=== PATIENT | male | born 1980 | race Caucasian/White ===

== ENCOUNTER 2019-10-22 00:23 | Emergency (ER) | payer BC, SELFPAY ==
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
[2019-10-22 00:25] VITALS: BP 119/65; PULSE 98; RESP 14; TEMP 36.8; O2SAT 98
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
--- NOTE | 2019-10-22 02:53 | PC.NURSE ---
alum finger splint applied as ordered.
[2019-10-22] MEDS: DOXYCYCLINE HYCLATE 100 MG TABLET PO (03:14)
[2019-10-22] MEDS: CLINDAMYCIN HCL 150 MG CAP 300 MG PO (03:15)
[2019-10-22 03:20] VITALS: BP 138/86; PULSE 71; RESP 16; TEMP 36.4; O2SAT 97
== END 2019-10-22 03:21 | disposition home or self-care (01) ==
PROVIDERS: Emergency Provider Emergency Medicine; PCP Internal Medicine Infectious Disease
DX: S61.255A Open bite of left ring finger without damage to nail, initial encounter (principal); Y04.1XXA Assault by human bite, initial encounter
CPT/HCPCS: 73140; 99283; A9270

== ENCOUNTER 2021-03-02 13:23 | Outpatient (CLI) | payer OTHER, SELFPAY ==
[2021-03-02 14:39] LABS: Hematocrit 47.3 % (42.0-52.0); Hemoglobin 15.7 g/dL (14.0-18.0)
[2021-03-02 14:50] LABS: Blood Urea Nitrogen 19 mg/dL (9-20); Estimated Glomerular Filt Rate > 60
[2021-03-02 15:42] LABS: Iron 60 ug/dL (49-181)
[2021-03-02 15:53] LABS: Percent Iron Saturation 17 % (20-50)
--- NOTE | 2021-03-02 16:39 | WPDPFTINT ---
PFT Procedure Performed PFT Procedure Performed Spirometry with Pre/Post Bronchodilator Plethysmography (Lung Vol) Diffusing Cap (DLCO) Flow Vol Loop PFT Interpretation This is a pulmonary function test with pre and post-bronchodilator spirometry, plethysmography and diffusing capacity. The test was performed and results interpreted in accordance with the 2019 and 2005 ATS/ERS Task Force guidelines respectively using the Global Lung Function Initiative-2012 reference equations. Patient demonstrated good effort and cooperation. Reproducibility criteria were met. The quality of the pre bronchodilator spirometry maneuver was Grade B and post bronchodilator spirometry maneuver was Grade C. Findings: Spirometry: There is decreased maximal expiratory airflow at low lung volumes with concave expiratory flow tracing. The pre bronchodilator FVC is 5.92 L, 113% predicted. The pre bronchodilator FEV1 is 4.01 L, 96% predicted. The FEV1: FVC ratio was 68%. The post bronchodilator FVC is 5.21 L, representing a 12% decrease. The post bronchodilator FEV1 is 3.18 L, representing a 21% decrease. The post bronchodilator FEV1: FVC ratio 61%. Plethysmography: The total lung capacity is 11.02, 157% predicted. Functional residual capacity is 7.04, 184% predicted. The residual volume is 4.85 L, 242% predicted. Diffusing capacity: The absolute diffusion capacity is 29.1, 84% predicted. The diffusing capacity corrected for alveolar volume is 4.20, 93% predicted. Impression: There is a mild obstructive abnormality with and normal FEV1 and without significant improvement after inhaling a single dose of albuterol. The increase in residual volume is consistent with air trapping from an obstructive abnormality. Hyperinflation is present is demonstrated by the increase in functional residual capacity and total lung capacity and is consistent with an obstructive abnormality. The diffusing capacity is normal. There are no prior studies for comparison
[2021-03-06 12:53] LABS: Red Blood Cell Folate 470 ng/mL RBC (>280)
== END 2021-03-02 13:24 | disposition home or self-care (01) ==
PROVIDERS: PCP Internal Medicine Infectious Disease; Visit Provider Nurse Practitioner
DX: R06.09 Other forms of dyspnea (principal); R94.2 Abnormal results of pulmonary function studies
CPT/HCPCS: 36415; 82565; 82607; 82728; 82747; 83540; 83550; 83735; 84520; 85014; 85018; 94060; 94726; 94729

== ENCOUNTER 2022-12-17 12:32 | Emergency (ER) | payer OTHER, SELFPAY ==
[2022-12-17 12:45] VITALS: BP 104/70; PULSE 85; RESP 15; TEMP 36.3; O2SAT 99
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
== END 2022-12-17 13:43 | disposition left against medical advice (07) ==
PROVIDERS: PCP Nurse Practitioner Family
DX: Z04.1 Encounter for examination and observation following transport accident (principal)
CPT/HCPCS: 99199

== ENCOUNTER 2024-11-09 00:28 | Inpatient (IN) | payer OTHER, SELFPAY ==
[2024-11-09] VITALS (19 sets, daily range): BP systolic 107–131; BP diastolic 60–70; PULSE 69–87; RESP 16–26; TEMP 36.6–36.9; O2SAT 95–100; BMI 23.0; BMI 22.3
--- NOTE | ~2024-11-09 | CT_ITS ---
EXAMINATION: CTA chest PE protocol DATE: 11/09/2024 18:55 INDICATION: elevated ddimer TECHNIQUE: Computed tomography angiography (CTA) of the chest was performed with 100 mL Omnipaque-350 intravenous contrast timed to evaluate the pulmonary arteries. Coronal maximum intensity projection 3D-reconstructions were created by the technologist. The dose-length product (DLP) was 343.77 mGy-cm. Automated exposure control and iterative reconstruction technique were employed. COMPARISON: None. FINDINGS: Lung parenchyma and airways: 6 mm pulmonary nodule. Additional sub-6 mm pulmonary nodules also noted. Lungs otherwise clear. Patent airways. Pleura: Unremarkable. Thoracic inlet, axillae and chest wall: Unremarkable. Thoracic aorta: No significant dilation. No dissection. Mediastinum: Normal. Heart and pericardium: Cardiomegaly. Dilated left ventricular chamber. Coronary artery calcifications: Absent. Upper abdomen: No significant finding. Bones: No acute osseous finding. Pulmonary arteries: Study quality: Limited by suboptimal contrast bolus and considerable beam hardeni ng artifact. Limited evaluation of the subsegmental pulmonary arteries. No central or segmental pulmo nary emboli detected. IMPRESSION: No CT evidence of acute central or segmental pulmonary embolus. Limited evaluation of the subsegmenta l pulmonary arteries No acute process detected in the chest. Cardiomegaly, with left ventricular chamber enlargement. Multiple pulmonary nodules measuring up to 6 mm in the left lower lobe. Recommend follow-up low-dose noncontrast CT of the chest in 3-6 months. Reviewed, dictated and finalized at [facility]. IMPRESSION: No CT evidence of acute central or segmental pulmonary embolus. Limited evaluat ion of the subsegmental pulmonary arteries No acute process detected in the chest. Cardiomegaly, with left ventricular chamber enlargement. Multiple pulmonary nodules measuring up to 6 mm in the left lower lobe. Recomme nd follow-up low-dose noncontrast CT of the chest in 3-6 months.
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
--- NOTE | ~2024-11-09 | XR_ITS ---
EXAM: XR knee LT min 4V, XR tibia fibula LT 2V, XR ankle LT min 3V DATE: 11/09/2024 15:58 HISTORY: pain . COMPARISON: None available. FINDINGS: Normal mineralization. No fracture or dislocation. No lytic or blastic lesion. 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 Prominent os trigonum. Minimal Achilles and mild plantar enthesopathy S oft tissue anchors in the lateral knee. No erosion or periosteal change. Soft tissues within normal l imits. IMPRESSION: No acute osseous finding the left knee, left tibia/fibula, or left ankle. Reviewed, dictated and finalized at location K. IMPRESSION: No acute osseous finding the left knee, left tibia/fibula, or left ankle. IMPRESSION: No acute osseous finding the left knee, left tibia/fibula, or left ankle.
--- NOTE | ~2024-11-09 | US_ITS ---
EXAMINATION:US venous doppler LE RT INDICATION:Swollen leg. Positive d-dimer. TECHNIQUE: Multiple grayscale, color flow and Doppler images of the right lower extremity deep venous systems were obtained and reviewed. COMPARISON:No prior studies for comparison. FINDINGS: The common femoral, superficial femoral and popliteal veins demonstrate normal respiratory variation, augmentation and compressibility. Color flow is also seen within the posterior tibial, pe roneal, greater saphenous and profunda veins. IMPRESSION: 1: No lower extremity deep venous thrombosis. Reviewed, dictated and finalized at location B.
--- NOTE | ~2024-11-09 | XR_ITS ---
EXAM: XR ankle RT min 3V, XR tibia fibula RT 2V, XR knee RT 3V DATE: 11/10/2024 17:26 HISTORY: ankle pain . COMPARISON: DVT ultrasound and CT right lower extremity 11/09/2024. FINDINGS: Normal mineralization. No fracture or dislocation. No lytic or blastic lesion. Mild degene rative change at the knee.. No erosion or periosteal change. Diffuse soft tissue swelling and subcuta neous edema in the lower leg. IMPRESSION: No acute osseous finding in the right knee, right tibia/fibula, or right ankle. Possible soft tissue defect at the level of the tibial tuberosity. Diffuse leg soft tissue swelling/edema. Reviewed, dictated and finalized at location K. IMPRESSION: No acute osseous finding in the right knee, right tibia/fibula, or right ankle. Possible soft tissue defect at the level of the tibial tuberosity. Diffuse leg soft tissue swelling/edema. IMPRESSION: No acute osseous finding in the right knee, right tibia/fibula, or right ankle. Possible soft tissue defect at the level of the tibial tuberosity. Diffuse leg soft tissue swelling/edema.
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
--- NOTE | ~2024-11-09 | CT_ITS ---
EXAMINATION: CT LE RT w con DATE: 11/09/2024 02:35 INDICATION: Right lower limb edema and erythema TECHNIQUE: High resolution computed tomography (CT) of the right lower limb was performed with 100 mL Omnipaque-350 intravenous contrast. Additional sagittal and coronal reconstructions were performed. Automated exposure control and iterative reconstruction technique were employed. The dose-length prod uct was 2348.52 mGy-cm. COMPARISON: None FINDINGS: Prominent asymmetric soft tissue swelling and subcutaneous edema along the right lower limb ischemia with relatively mild subcutaneous edema at the mid thigh becoming significantly more prominent at the right lower leg extending about the right ankle and over the dorsum of the foot. There is skin thick ening at the anterior aspect of the proximal lower leg just above cellulitis centered around a 6.0 x 3.0 x 0.9 cm fluid collection with peripheral enhancement located anterior to the anterior cerebral t uberosity which could represent a post traumatic hematoma/seroma or abscess. Although contrast opacif ication is relatively poor there is no evident thrombosis in either of the deep veins of the bilatera l lower limbs or the greater or lesser saphenous veins. Bone alignment is normal. No acute fracture. Plate and screw fixation along with a couple screw fragments versus suture anchors at the left latera l femoral condyle. Correlate with surgical history. Mild polyarticular osteoarthritis throughout the bilateral lower limbs most prominent at the bilateral hips and several joints in the feet. IMPRESSION: 1. Extensive subcutaneous edema throughout the right mid to lower leg with multifocal cellulitis ante rior to the proximal lower leg surrounding a 6.0 x 3.0 x 0.9 cm pretibial subcutaneous hematoma/serom a versus abscess which overlies anterior tibial tubercle. Reviewed, dictated and finalized at location A. IMPRESSION: 1. Extensive subcutaneous edema throughout the right mid to lower leg with mult ifocal cellulitis anterior to the proximal lower leg surrounding a 6.0 x 3.0 x 0.9 cm pretibial subcutaneous hematoma/seroma versus abscess which overlies ant erior tibial tubercle.
--- OUTSIDE RECORDS SUMMARY | 2024-11-09 00:30 | XMS_ITS | Continuity of Care Document ---
Author Organization [facility] Address [address] [place] [address] Phone Care Team Providers Care Medical Secretary Receptionist Name Role Phone Vitaly DE JESUS MD, Dwayne Unavailable Unavailable Allergies, Adverse Reactions, Alerts Substance Reaction Status Criticality No Known Allergies Active No Inform ation Procedures Procedure Date Office/outpatient visit,est, mod 2019 Supplemental Report Office/outpatient visit,est, mod 2019 Supplemental Report Office/outpatient visit,est, mod 2018 Supplemental Report MRI Lower extrm non joint w/o contrast D X-ray exam knee, 4+ views Office consultation, moderate-high Advance Directives Directive Yes / No Effective Date File Name No Information Encounters Encounter Description Practice Location Reason(s) For Visit Diagnoses Date Provider Providers Copied on Encounter Office/outpat ient visit,est, [facility], [address] [place] [id number], tel:[phone] [facility] r knee (chief complaint) Pain in right knee Vitaly Rice. [address] [place] [address], [place], [place], [id number], [place]. tel:[phone] Office/outpat ient visit,est, [facility], [address] [place] [address], [id number], [place] tel:[phone] [facility] r knee (chief complaint) Pain in right thighPain in right knee Vitaly Rice. [address], [address], [place], [place], [id number], [place]. tel:[phone] Office/outpat ient visit,est, [facility], [address], [place], [place], [id number], [place] tel:[phone] [facility] r leg (chief complaint) Pain in right thigh Vitaly Rice. [address], [address], [place], [place], [id number], [place]. tel:[phone] [facility], [address], [place], [place], [id number], [place] tel:[phone] [facility] Pain in right thigh [facility]. [address], [address], [place], [place], [id number], [place]. tel:[phone] Referring Provider: Po Mcgee MD P, [address], [place], [address] . tel:[phone] Office consultation, moderate-high [facility], [address], [place], [place], [id number], [place] tel:[phone] [facility] Rightknee And Thigh (chief complaint) Pain in right kneePain in right thigh Vitaly Rice. [address], [address], [place], [place], [id number], [place]. tel:[phone] Family History Family Member Type Diagnosis Age At Onset No Information Payers Payer name Insurance type Covered alliance party ID Giovanni trujillo(lenore Santamaria [facility] [id number] Social History Type Description Quantity Date Captured Comments Alcohol Use Details Unknown Caffeine Use Details Unknown Tobacco Use Status Ex-cigarette smoker 020 Smoking Status Former smoker Sex Male Chief Complaint And Reason For Visit From encounter dated '06/08/2019 13:10'. r knee (chief complaint). Description: patient presents to the office today for follow up right knee Reason For Referral Reason For Referral No Information Plan Of Treatment Date Type Action Status Referral Ordered: MRI Lower extrm non joint w/o contrast RT leg Appointment date/timeframe: 03/31/2019 ordered Referral Ordered: X-ray exam knee, 4+ views RT knee ordered History Of Present Illness Encounter Date Complaint History Of Prese nt Illness r knee patient presents to the office today for follow up right knee r knee patient presents to the office today for follow up right knee pain r leg patient presents to the office today for follow up mri results. Rightknee And Thigh patient pres ents to the office today for evaluation of right knee pain Functional Status Date Functional Assessmen t No Information Instructions Date Instruction Additional Infor mation No Information Assessments Type Assessment Date assessment Pain in right knee Patient Care Teams Name Effective Dates (start - stop) Status Members No Information
--- OUTSIDE RECORDS SUMMARY | 2024-11-09 00:30 | XMS_ITS | Data Portability ---
Author Organization [facility] Toño PUGA Address [address] [place] [address] Care Team Providers Care Kitchen Supervisor Name Role Phone NEY MONCADA Primary Care Provider [facility] Seasoner Hand [phone] Assessment No assessment recorded. Plan of Treatment Reminders Order Date Submit Date Provider Last Modified By Organization Details Last Modified Time Details Appointments None recorded. Lab CBC w/ auto diff 2019 020 [place] [facility], [address] [place] [address], [facility] [address], [place], [address], 0 09:12:59 urinalysis , complete 2019 020 [place] [facility], [address] [place] [address], [address], [place], [address], 0 09:13:00 CMP, serum or plasma 2019 020 [place] [facility], [address] [place] [address], [address], [place], [address], 0 09:12:59 lipid panel, serum 2019 020 [place] [facility], [address] [place] [address], [address], [place], [address], 0 09:13:01 HIV 1+2 AB + HIV 1 p24 Ag, qualitativ e immunoassa y, serum 2019 020 [facility], [address], [address], [place], [address], 0 10:52:00 HIV 1+2 AB + HIV 1 p24 Ag, qualitativ e immunoassa y, serum 2019 020 [facility], [address] [facility] [address], [place], [address], 0 09:13:01 HIV 1+2 AB + HIV 1 p24 Ag, qualitativ e immunoassa y, serum 2019 020 [facility], [address] [facility] [address], [address], [place], [address], 0 03:06:31 HIV 1+2 AB + HIV 1 p24 Ag, qualitativ e immunoassa y, serum 2018 019 [facility], [address] [facility] [address], [address], [place], [address], 0 06:23:48 HIV 1+2 AB + HIV 1 p24 Ag, qualitativ e immunoassa y, serum 2019 020 [facility], [address] [facility] [address], [address], [place], [address], 0 07:15:23 HIV 1+2 AB + HIV 1 p24 Ag, qualitativ e immunoassa y, serum 2019 020 [facility], [address] [facility], [address], [place], [address], 0 10:34:05 CBC w/ auto diff 2018 019 [facility], [address] [facility] [address], [address], [place], [address], 9 06:09:49 CMP, serum or plasma 2018 019 [facility], [address], [address], [place], [address], 9 06:09:50 urinalysis , complete 2018 019 [facility], [address] [facility] [address], [address], [place], [address], 9 16:36:35 lipid panel, serum 2018 019 [facility], [address] [facility] [address], [address], [place], [address], 9 03:13:14 CT + NG RNA, PCR, unspecifie d specimen 2018 019 [facility], [address] [facility] [address], [address], [place], [address], 9 06:09:50 RPR (rapid plasma reagin), serum 2018 019 [facility], [address] [place], [place] [address], [address], [place], [address], 9 06:09:51 urinalysis , dipstick, reflex micro 2018 019 [facility], [address] [facility] [address], [address], [place], [address], 9 06:09:49 HIV 1+2 AB + HIV 1 p24 Ag, qualitativ e immunoassa y, serum 2018 019 [facility], [address] [place], [place] [address], [address], [place], [address], 9 06:09:51 amylase + lipase, serum 2017 018 [facility], [address], [address], [place], [address], 8 17:10:40 CBC 2017 018 [facility], [address], [address], [place], [address], 8 17:10:37 urinalysis , complete 2017 018 [facility], [address], [address], [place], [address], 8 17:10:38 lipid panel, serum 2017 018 [facility], [address], [address], [place], [address], 8 17:10:39 CMP, serum or plasma 2017 018 [facility], [address], [address], [place], [address], 8 17:10:38 HIV 1+2 AB + HIV 1 p24 Ag, qualitativ e immunoassa y, serum 2017 018 [facility], [address], [address], [place], [address], 8 17:10:41 HIV 1+2 AB + HIV 1 p24 Ag, qualitativ e immunoassa y, serum 2017 018 [facility], [address], [address], [place], [address], 8 03:19:03 MMR immunity, serum 2017 018 [place] [facility], [address] [facility], [address], [place], [address], 8 17:10:39 Referral urologist referral - Pt desires a vasectomy/ Please call patient to schedule appt. Thank you 2019 020 jose c Sethi, [address] [facility], [address], [place], [address], 0 11:45:47 dermatolog ist referral - Cystic lesion right upper thigh. Skin survey/ Please call patient to schedule appt. Thank you 2018 019 jose c Rodriguez MD, [address] [place], [address], 0 09:38:26 sleep medicine referral - Please call patient to schedule appt. Thank you 2018 019 [facility], [address] [facility], [facility] [address], [place], [address], 9 10:08:53 gastroente rologist referral - Abdominal pain, bilary dilatation on CT scan/Pleas e call patient to schedule appt. Thank you 2017 018 [place] Not available 8 14:21:07 Procedures None recorded. Surgeries None recorded. Imaging XR, lumbosacra l spine - L sided lower back 2019 020 [facility] (Radiology), [address] [place], [address], 0 12:21:43 Medication Orders ketoconazo le 2 % shampoo 2019 020 [facility] #94296, [address], [place], [place], [id number], 0 10:55:13 fluconazol e 150 mg tablet 2019 020 [facility] #58690, [address], [place], [place], [id number], 0 10:49:23 acyclovir 800 mg tablet 2019 020 [facility] #[id number], [address], [place], [place], [id number], 0 16:16:11 acyclovir 800 mg tablet 2018 019 [facility] #05465, [address], [place], [place], [id number], 9 16:35:27 Factive 320 mg tablet 2018 019 [facility] #[id number], [address], [place], [place], [id number], 9 16:23:04 azithromyc in 500 mg tablet 2018 019 [facility] #85247, [address], [place], [place], [id number], 9 16:22:58 ketoconazo le 2 % shampoo 2018 019 o[facility] #67106, [address], [place], [place], [id number], 0 16:10:16 fluconazol e 150 mg tablet 2018 019 [facility] #77009, [address], [id number], 9 16:22:53 valacyclov ir 1 gram tablet 2017 018 [facility], [address], [place], [place], [id number], 9 16:39:27 Truvada 200 mg-300 mg tablet 2017 018 [facility] #28810, [address], [place], [place], [id number], 9 16:39:32 Patient TargetsNo targets recorded. Patient Instructions Encounter Date Encounter Id Patient Instructions Last Modified By Organization Details Last Modified Time 05/02/2017 [id number] genital herpes: care instructions oajao Not available 05/02/2017 19:25:03 abdominal pain: care instructions oajao Not available 05/02/2017 16:48:08 A healthy lifestyle: care instructions oajao Not available 05/02/2017 16:48:08 Quitting Tobacco : Care Instructions oajao Not available 05/02/2017 16:48:08 HIV testing: car e instructions oajao Not available 05/02/2017 16:48:08 Labs GI Serial HIV tests Restart Truvada and take Valtrex to prevent recurrence and this should further decrease his chances of open lesions and judy HIV. Follow up in 3 months and PRN Copy of the CT scan from [facility]. oajao Not available 05/02/2017 19:31:53 Negative HIV lay t results were discussed. Addendum Measles and serial HIV testing was added on. oajao Not available 05/02/2017 19:40:25 12/31/2018 [id number] tinea versicolor : care instructions oajao Not available 12/31/2018 16:50:15 HIV testing: car e instructions oajao Not available 12/31/2018 16:35:51 Factive/Azithrom y fly Ketoconazole/Fluc onazole Labs Follow up in 6 weeks oajao Not available 12/31/2018 18:36:14 Detailed discussion about the side effects oajao Not available 12/31/2018 18:36:31 02/11/2019 [id number] When You Want to Lose Weight: Care Instructions oajao Not available 02/11/2019 16:31:32 learning about healthy weight oajao Not available 02/11/2019 16:31:32 skin lesions: care instructions oajao Not available 02/11/2019 16:38:58 HIV testing: car e instructions oajao Not available 02/11/2019 16:36:48 Acyclovir [facility] Dermatology Follow up in 6 months oajao Not available 02/11/2019 17:58:23 06/24/2019 [id number] sleep apnea: car e instructions oajao Not available 06/24/2019 16:12:[address] Karo Wynn Follow up 6 months and PRN oajao Not available 06/24/2019 16:34:55 Lab results were discussed oajao Not available 06/24/2019 16:35:08 01/05/2020 [id number] back care and preventing injuries: care instructions oajao Not available 01/05/2020 10:49:15 Labs U=U pt information Xray Ketoconazole/Fluc onazole Follow up in 6 months oajao Not available 01/05/2020 11:16:58 Reason for Referral Abdominal pain, bilary dilat ation on CT scan/Please call patient to schedule appt. Thank you Referring Physician: Jaziel Osullivan Internal Medicine, Encounter Date: 05/02/2017 Sleep Medicine Referral for Apnea Please call patient to schedule appt. Thank you Referring Physician: Jaziel Osullivan Internal Medicine, Encounter Date: 12/31/2018 Stile Ripsaw Operator Referral for S kin lesion Cystic lesion right upper thigh. Skin survey Cystic lesion right upper thigh. Skin survey/ Please call patient to schedule appt. Thank you Referring Physician: Jaziel Osullivan Internal Medicine, Encounter Date: 02/11/2019 Urologist Referral for Vasec reji requested Pt desires a vasectomy Pt desires a vasectomy/ Please call patient to schedule appt. Thank you Referring Physician: Jaziel Osullivan Internal Medicine, Encounter Date: 01/05/2020 Results Created Date Observation Date Name Description Value Unit Range Abnormal Flag Note LastModifiedBy Organization Detail LastModifiedTime 04/02/20 18 07/15/2017 CBC WBC 4.1 x10e3 /uL 3.4-10 .8 Not Available [facility] ([facility]) [address] [place] [place], [address], 07/15/2017 17:10:37 07/15/19 18 07/15/2017 CBC RBC 5.00 x10e6 /uL 4.14-5 .80 Not Available [facility] ([facility]) [address] [place], [address], 07/15/2017 17:10:37 07/15/19 18 07/15/2017 CBC hemoglobin 15.3 g/dL 13.0-1 7.7 Not Available [facility] ([facility]) [address] [place] [place], [address], 07/15/2017 17:10:37 07/15/19 18 07/15/2017 CBC hematocrit 44.8 % 37.5-5 1.0 Not Available [facility] ([facility]) [address] [place] [place], [address], 07/15/2017 17:10:37 07/15/19 18 07/15/2017 CBC MCV 90 fL 79-97 Not Available [facility] ([facility]) [address] [facility], [place], [address], 07/15/2017 17:10:37 07/15/19 18 07/15/2017 CBC MCH 30.6 pg 26.6-3 3.0 Not Available [facility] ([facility]) [address] [place] [place], [address], 07/15/2017 17:10:37 07/15/19 18 07/15/2017 CBC MCHC 34.2 g/dL 31.5-3 5.7 Not Available [facility] ([facility]) [address] [place] [place], [address], 07/15/2017 17:10:37 07/15/19 18 07/15/2017 CBC RDW 14.0 % 12.3-1 5.4 Not Available [facility] ([facility]) [address] [facility], [place], [address], 07/15/2017 17:10:37 07/15/19 18 07/15/2017 CBC platelets 222 x10e3 /uL 150-37 9 Not Available [facility] ([facility]) [address] [facility], [place], [address], 07/15/2017 17:10:37 07/15/19 18 07/15/2017 CBC neutrophils 53 % not estab. Not Available [facility] ([facility]) [address] [place] [place], [address], 07/15/2017 17:10:37 07/15/19 18 07/15/2017 CBC lymphs 34 % not estab. Not Available [facility] ([facility]) [address] [place] [place], [address], 07/15/2017 17:10:37 07/15/19 18 07/15/2017 CBC monocytes 9 % not estab. Not Available [facility] ([facility]) [address] [place] [place], [address], 07/15/2017 17:10:37 07/15/19 18 07/15/2017 CBC eos 3 % not estab. Not Available [facility] ([facility]) [address] [facility], [place], [address], 07/15/2017 17:10:37 07/15/19 18 07/15/2017 CBC basos 1 % not estab. Not Available [facility] ([facility]) [address] [place], [address], 07/15/2017 17:10:37 07/15/19 18 07/15/2017 CBC immature cells TRAVEL ACCOMMODATION INSPECTOR Not Available [facility] ([facility]) [address] [facility], [place], [address], 07/15/2017 17:10:37 07/15/19 18 07/15/2017 CBC neutrophils (absolute) 2.1 x10e3 /uL 1.4-7. 0 Not Available [facility] ([facility]) [address] [facility], [place], [address], 07/15/2017 17:10:37 07/15/19 18 07/15/2017 CBC lymphs (absolute) 1.4 x10e3 /uL 0.7-3. 1 Not Available [facility] ([facility]) [address] [facility], [place], [address], 07/15/2017 17:10:37 07/15/19 18 07/15/2017 CBC monocytes(ab solute) 0.4 x10e3 /uL 0.1-0. 9 Not Available [facility] ([facility]) [address] [facility], [place], [address], 07/15/2017 17:10:37 07/15/19 18 07/15/2017 CBC eos (absolute) 0.1 x10e3 /uL 0.0-0. 4 Not Available [facility] ([facility]) [address] [facility], [place], [address], 07/15/2017 17:10:37 07/15/19 18 07/15/2017 CBC baso (absolute) 0.1 x10e3 /uL 0.0-0. 2 Not Available [facility] ([facility]) [address] [facility], [place], [address], 07/15/2017 17:10:37 07/15/19 18 07/15/2017 CBC immature granulocytes 0 % not estab. Not Available [facility] ([facility]) [address] [facility], [place], [address], 07/15/2017 17:10:37 07/15/19 18 07/15/2017 CBC immature grans (abs) 0.0 x10e3 /uL 0.0-0. 1 Not Available [facility] ([facility]) [address] [place], [address], 07/15/2017 17:10:37 07/15/19 18 07/15/2017 CBC NRBC TRAVEL ACCOMMODATION INSPECTOR Not Available [facility] ([facility]) [address] [place], [address], 07/15/2017 17:10:37 07/15/19 18 07/15/2017 CBC hematology comments: TRAVEL ACCOMMODATION INSPECTOR Not Available [facility] ([facility]) [address] [place], [address], 07/15/2017 17:10:37 07/15/19 18 07/15/2017 CMP, serum or plasm a glucose 90 mg/dL 65-99 Not Available [facility] ([facility]) [address] [place], [address], 07/15/2017 17:10:38 07/15/19 18 07/15/2017 CMP, serum or plasm a BUN 13 mg/dL 6-20 Not Available [facility] ([facility]) [address] [place], [address], 07/15/2017 17:10:38 07/15/19 18 07/15/2017 CMP, serum or plasm a creatinine 1.12 mg/dL 0.76-1 .27 Not Available [facility] ([facility]) [address] [place], [address], 07/15/2017 17:10:38 07/15/19 18 07/15/2017 CMP, serum or plasm a eGFR if nonafricn AM 83 mL/mi n/1.7 3 >59 Not Available [facility] ([facility]) [address] [place], [address], 07/15/2017 17:10:38 07/15/19 18 07/15/2017 CMP, serum or plasm a eGFR if africn AM 96 mL/mi n/1.7 3 >59 Not Available [facility] ([facility]) [address] [place], [address], 07/15/2017 17:10:38 07/15/19 18 07/15/2017 CMP, serum or plasm a BUN/creatini ne ratio 12 9-20 Not Available [facility] ([facility]) [address] [place], [address], 07/15/2017 17:10:38 07/15/19 18 07/15/2017 CMP, serum or plasm a sodium 144 mmol/ L 134-14 4 Not Available [facility] ([facility]) [address] [place], [address], 07/15/2017 17:10:38 07/15/19 18 07/15/2017 CMP, serum or plasm a potassium 4.8 mmol/ L 3.5-5. 2 Not Available [facility] ([facility]) [address] [place], [address], 07/15/2017 17:10:38 07/15/19 18 07/15/2017 CMP, serum or plasm a chloride 106 mmol/ L 96-106 Not Available [facility] ([facility]) [address] [place], [address], 07/15/2017 17:10:38 07/15/19 18 07/15/2017 CMP, serum or plasm a carbon dioxide, total 24 mmol/ L 18-29 Not Available [facility] ([facility]) [address] [place], [address], 07/15/2017 17:10:38 07/15/19 18 07/15/2017 CMP, serum or plasm a calcium 9.5 mg/dL 8.7-10 .2 Not Available [facility] ([facility]) [address] [place], [address], 07/15/2017 17:10:38 07/15/19 18 07/15/2017 CMP, serum or plasm a protein, total 6.9 g/dL 6.0-8. 5 Not Available [facility] ([facility]) [address] [place], [address], 07/15/2017 17:10:38 07/15/19 18 07/15/2017 CMP, serum or plasm a albumin 4.8 g/dL 3.5-5. 5 Not Available [facility] ([facility]) [address] [place], [address], 07/15/2017 17:10:38 07/15/19 18 07/15/2017 CMP, serum or plasm a globulin, total 2.1 g/dL 1.5-4. 5 Not Available [facility] ([facility]) [address] [place], [address], 07/15/2017 17:10:38 07/15/19 18 07/15/2017 CMP, serum or plasm a A/G ratio 2.3 1.2-2. 2 above high normal Not Available [facility] ([facility]) [address] [place], [address], 07/15/2017 17:10:38 07/15/19 18 07/15/2017 CMP, serum or plasm a bilirubin, total 0.7 mg/dL 0.0-1. 2 Not Available [facility] ([facility]) [address] [place], [address], 07/15/2017 17:10:38 07/15/19 18 07/15/2017 CMP, serum or plasm a alkaline phosphatase 73 IU/L 39-117 Not Available [facility] [address] [place], [address], 07/15/2017 17:10:38 07/15/19 18 07/15/2017 CMP, serum or plasm a AST (SGOT) 12 IU/L 0-40 Not Available [facility] ([facility]) [address] [place], [address], 07/15/2017 17:10:38 07/15/19 18 07/15/2017 CMP, serum or plasm a ALT (SGPT) 12 IU/L 0-44 Not Available [facility] ([facility]) [address] [place], [address], 07/15/2017 17:10:38 07/15/19 18 07/15/2017 urina lysis , compl ete specific gravity 1.019 1.005- 1.030 Not Available [facility] ([facility]) [address] [facility], [place], [address], 07/15/2017 17:10:38 07/15/19 18 07/15/2017 urina lysis , compl ete pH 5.5 5.0-7. 5 Not Available [facility] ([facility]) [address] [facility], [place], [address], 07/15/2017 17:10:38 07/15/19 18 07/15/2017 urina lysis , compl ete urine-color Yellow yellow Not Available [facility] ([facility]) [address] [facility], [place], [address], 07/15/2017 17:10:38 07/15/19 18 07/15/2017 urina lysis , compl ete appearance Clear clear Not Available [facility] ([facility]) [address] [facility], [place], [address], 07/15/2017 17:10:38 07/15/19 18 07/15/2017 urina lysis , compl ete WBC esterase Negati ve negati ve Not Available [facility] ([facility]) [address] [place], [address], 07/15/2017 17:10:38 07/15/19 18 07/15/2017 urina lysis , compl ete protein Negati ve negati ve/tra ce Not Available [facility] ([facility]) [address] [place], [address], 07/15/2017 17:10:38 07/15/19 18 07/15/2017 urina lysis , compl ete glucose Negati ve negati ve Not Available [facility] ([facility]) [address] [place], [address], 07/15/2017 17:10:38 07/15/19 18 07/15/2017 urina lysis , compl ete ketones Negati ve negati ve Not Available [facility] ([facility]) [address] [place], [address], 07/15/2017 17:10:38 07/15/19 18 07/15/2017 urina lysis , compl ete occult blood Negati ve negati ve Not Available [facility] ([facility]) [address] [place], [address], 07/15/2017 17:10:38 07/15/19 18 07/15/2017 urina lysis , compl ete bilirubin Negati ve negati ve Not Available [facility] ([facility]) [address] [place], [address], 07/15/2017 17:10:38 07/15/19 18 07/15/2017 urina lysis , compl ete urobilinogen ,semi-qn 0.2 mg/dL 0.2-1. 0 Not Available [facility] ([facility]) [address] [place], [address], 07/15/2017 17:10:38 07/15/19 18 07/15/2017 urina lysis , compl ete nitrite, urine Negati ve negati ve Not Available [facility] ([facility]) [address] [place], [address], 07/15/2017 17:10:38 07/15/19 18 07/15/2017 urina lysis , compl ete microscopic examination Commen t Micro scopi c not indic ated and not perfo rmed. Not Available [facility] ([facility]) [address] [place], [address], 07/15/2017 17:10:38 07/15/19 18 07/15/2017 lipid panel , serum cholesterol, total 178 mg/dL 100-19 9 Not Available [facility] ([facility]) [address] [place], [address], 07/15/2017 17:10:39 07/15/19 18 07/15/2017 lipid panel , serum triglyceride s 102 mg/dL 0-149 Not Available [facility] ([facility]) [address] [place], [address], 07/15/2017 17:10:39 07/15/19 18 07/15/2017 lipid panel , serum HDL cholesterol 45 mg/dL >39 Not Available [facility] ([facility]) [address] [place] [place], [address], 07/15/2017 17:10:39 07/15/19 18 07/15/2017 lipid panel , serum VLDL cholesterol boni 20 mg/dL 5-40 Not Available [facility] ([facility]) [address] [place], [address], 07/15/2017 17:10:39 07/15/19 18 07/15/2017 lipid panel , serum LDL cholesterol calc 113 mg/dL 0-99 above high normal Not Available [facility] ([facility]) [address] [place], [address], 07/15/2017 17:10:39 07/15/19 18 07/15/2017 lipid panel , serum comment: TRAVEL ACCOMMODATION INSPECTOR Not Available [facility] ([facility]) [address] [place], [address], 07/15/2017 17:10:39 07/15/19 18 07/15/2017 MMR immun ity, serum rubella antibodies, IgG 5.50 index immune >0.99 Non-i mmune <0.90 Equiv ocal 0.90 - 0.99 Immun e >0.99 Not Available [facility] ([facility]) [address] [place], [address], 07/15/2017 17:10:39 07/15/19 18 07/15/2017 MMR immun ity, serum rubeola Ab, IgG 90.7 AU/mL immune >29.9 Negat yang <25.0 Equiv ocal 25.0 - 29.9 Posit yang >29.9 Prese nce of antib odies to Rubeo la is presu mptiv e evide nce of immun ity excep t when acute infec tion is suspe cted. Not Available [facility] ([facility]) [address] [facility], [place], [address], 07/15/2017 17:10:39 07/15/19 18 07/15/2017 MMR immun ity, serum mumps abs, IgG 103.0 AU/mL immune >10.9 Negat yang <9.0 Equiv ocal 9.0 - 10.9 Posit yang >10.9 A posit yang resul t gener ally indic ates past expos ure to Mumps virus or previ ous vacci natio n. Not Available [facility] ([facility]) [address] [facility], [place], [address], 07/15/2017 17:10:39 07/15/19 18 07/15/2017 amyla se + lipas e, serum amylase 105 U/L 31-124 Not Available [facility] ([facility]) [address] [place], [address], 07/15/2017 17:10:40 07/15/19 18 07/15/2017 amyla se + lipas e, serum lipase 37 U/L 13-78 Not Available [facility] ([facility]) [address] [place], [address], 07/15/2017 17:10:40 07/15/19 18 07/15/2017 HIV 1+2 AB + HIV 1 p24 Ag, quali tativ e immun oassa y, serum HIV screen 4TH generation wrfx Non Reacti ve non reacti ve Not Available [facility] ([facility]) [address] [place] [address], [address], 07/15/2017 17:10:40 01/01/20 19 01/01/2019 urina lysis , dipst ick, refle x micro specific gravity >=1.03 0 1.005- 1.030 abnormal Not Available [facility] ([facility]) [address] [place], [address], 01/04/2019 06:09:48 01/01/2001/01/2019 urina lysis , dipst ick, refle x micro pH 5.5 5.0-7. 5 Not Available [facility] ([facility]) [address] [place], [address], 01/04/2019 06:09:48 01/01/20 19 01/01/2019 urina lysis , dipst ick, refle x micro urine-color YELLOW yellow Not Available [facility] ([facility]) [address] [facility], [place], [address], 01/04/2019 06:09:48 01/01/2001/01/2019 urina lysis , dipst ick, refle x micro appearance CLEAR clear Not Available [facility] ([facility]) [address] [place], [address], 01/04/2019 06:09:48 01/01/2001/01/2019 urina lysis , dipst ick, refle x micro WBC esterase NEGATI VE negati ve Not Available [facility] ([facility]) [address] [place] [address], [address], 01/04/2019 06:09:48 01/01/20 19 01/01/2019 urina lysis , dipst ick, refle x micro protein NEGATI VE negati ve/tra ce Not Available [facility] ([facility]) [address] [place], [address], 01/04/2019 06:09:48 01/01/2001/01/2019 urina lysis , dipst ick, refle x micro glucose NEGATI VE negati ve Not Available [facility] ([facility]) [address] [place], [address], 01/04/2019 06:09:48 01/01/20 19 01/01/2019 urina lysis , dipst ick, refle x micro ketones NEGATI VE negati ve Not Available [facility] ([facility]) [address] [place], [address], 01/04/2019 06:09:48 01/01/20 19 01/01/2019 urina lysis , dipst ick, refle x micro occult blood NEGATI VE negati ve Not Available [facility] ([facility]) [address] [place], [address], 01/04/2019 06:09:48 01/01/2001/01/2019 urina lysis , dipst ick, refle x micro bilirubin NEGATI VE negati ve Not Available [facility] ([facility]) [address] [place], [address], 01/04/2019 06:09:48 01/01/2001/01/2019 urina lysis , dipst ick, refle x micro urobilinogen ,semi-qn 0.2 mg/dL 0.2-1. 0 Not Available [facility] ([facility]) [address] [place], [address], 01/04/2019 06:09:48 01/01/2001/01/2019 urina lysis , dipst ick, refle x micro nitrite, urine NEGATI VE negati ve Not Available [facility] ([facility]) [address] [place], [address], 01/04/2019 06:09:48 01/01/20 19 01/01/2019 urina lysis , dipst ick, refle x micro microscopic examination COMMEN T Micro scopi c not indic ated and not perfo rmed. Not Available [facility] ([facility]) [address] [facility], [place], [address], 01/04/2019 06:09:48 01/01/2001/01/2019 CBC w/ auto diff WBC 4.9 x10e3 /uL 3.4-10 .8 Not Available [facility] ([facility]) [address] [place], [address], 01/04/2019 06:09:49 01/01/2001/01/2019 CBC w/ auto diff RBC 4.82 x10e6 /uL 4.14-5 .80 Not Available [facility] ([facility]) [address] [place], [address], 01/04/2019 06:09:49 01/01/20 19 01/01/2019 CBC w/ auto diff hemoglobin 14.8 g/dL 13.0-1 7.7 Not Available [facility] ([facility]) [address] [place], [address], 01/04/2019 06:09:49 01/01/2001/01/2019 CBC w/ auto diff hematocrit 42.7 % 37.5-5 1.0 Not Available [facility] ([facility]) [address] [place], [address], 01/04/2019 06:09:49 01/01/20 19 01/01/2019 CBC w/ auto diff MCV 89 fL 79-97 Not Available [facility] ([facility]) [address] [place], [address], 01/04/2019 06:09:49 01/01/20 19 01/01/2019 CBC w/ auto diff MCH 30.7 pg 26.6-3 3.0 Not Available [facility] ([facility]) [address] [facility], [place], [address], 01/04/2019 06:09:49 01/01/20 19 01/01/2019 CBC w/ auto diff MCHC 34.7 g/dL 31.5-3 5.7 Not Available [facility] ([facility]) [address] [facility], [place], [address], 01/04/2019 06:09:49 01/01/20 19 01/01/2019 CBC w/ auto diff RDW 13.9 % 12.3-1 5.4 Not Available [facility] ([facility]) [address] [facility], [place], [address], 01/04/2019 06:09:49 01/01/20 19 01/01/2019 CBC w/ auto diff platelets 208 x10e3 /uL 150-45 0 Not Available [facility] ([facility]) [address] [facility], [place], [address], 01/04/2019 06:09:49 01/01/20 19 01/01/2019 CBC w/ auto diff neutrophils 59 % not estab. Not Available [facility] ([facility]) [address] [facility], [place], [address], 01/04/2019 06:09:49 01/01/20 19 01/01/2019 CBC w/ auto diff lymphs 28 % not estab. Not Available [facility] ([facility]) [address] [facility], [place], [address], 01/04/2019 06:09:49 01/01/20 19 01/01/2019 CBC w/ auto diff monocytes 11 % not estab. Not Available [facility] ([facility]) [address] [facility], [place], [address], 01/04/2019 06:09:49 01/01/20 19 01/01/2019 CBC w/ auto diff eos 2 % not estab. Not Available [facility] ([facility]) [address] [facility], [place], [address], 01/04/2019 06:09:49 01/01/2001/01/2019 CBC w/ auto diff basos 0 % not estab. Not Available [facility] ([facility]) [address] [facility], [place], [address], 01/04/2019 06:09:49 01/01/2001/01/2019 CBC w/ auto diff immature cells TRAVEL ACCOMMODATION INSPECTOR Not Available [facility] ([facility]) [address] [place], [address], 01/04/2019 06:09:49 01/01/2001/01/2019 CBC w/ auto diff neutrophils (absolute) 2.9 x10e3 /uL 1.4-7. 0 Not Available [facility] ([facility]) [address] [place], [address], 01/04/2019 06:09:49 01/01/2001/01/2019 CBC w/ auto diff lymphs (absolute) 1.4 x10e3 /uL 0.7-3. 1 Not Available [facility] ([facility]) [address] [place], [address], 01/04/2019 06:09:49 01/01/2001/01/2019 CBC w/ auto diff monocytes(ab solute) 0.5 x10e3 /uL 0.1-0. 9 Not Available [facility] ([facility]) [address] [place], [address], 01/04/2019 06:09:49 01/01/2001/01/2019 CBC w/ auto diff eos (absolute) 0.1 x10e3 /uL 0.0-0. 4 Not Available [facility] ([facility]) [address] [place], [address], 01/04/2019 06:09:49 01/01/2001/01/2019 CBC w/ auto diff baso (absolute) 0.0 x10e3 /uL 0.0-0. 2 Not Available [facility] ([facility]) [address] [place], [address], 01/04/2019 06:09:49 01/01/20 19 01/01/2019 CBC w/ auto diff immature granulocytes 0 % not estab. Not Available [facility] ([facility]) [address] [facility], [place], [address], 01/04/2019 06:09:49 01/01/20 19 01/01/2019 CBC w/ auto diff immature grans (abs) 0.0 x10e3 /uL 0.0-0. 1 Not Available [facility] ([facility]) [address] [facility], [place], [address], 01/04/2019 06:09:49 01/01/20 19 01/01/2019 CBC w/ auto diff NRBC TRAVEL ACCOMMODATION INSPECTOR Not Available [facility] ([facility]) [address] [facility], [place], [address], 01/04/2019 06:09:49 01/01/2001/01/2019 CBC w/ auto diff hematology comments: TRAVEL ACCOMMODATION INSPECTOR Not Available [facility] ([facility]) [address] [facility], [place], [address], 01/04/2019 06:09:49 01/01/20 19 01/01/2019 CMP, serum or plasm a glucose 89 mg/dL 65-99 Not Available [facility] ([facility]) [address] [place], [address], 01/04/2019 06:09:50 01/01/20 19 01/01/2019 CMP, serum or plasm a BUN 19 mg/dL 6-24 Not Available [facility] ([facility]) [address] [place], [address], 01/04/2019 06:09:50 01/01/20 19 01/01/2019 CMP, serum or plasm a creatinine 1.22 mg/dL 0.76-1 .27 Not Available [facility] ([facility]) [address] [place], [address], 01/04/2019 06:09:50 01/01/20 19 01/01/2019 CMP, serum or plasm a eGFR if nonafricn AM 74 mL/mi n/1.7 3 >59 Not Available [facility] ([facility]) [address] [place], [address], 01/04/2019 06:09:50 01/01/20 19 01/01/2019 CMP, serum or plasm a eGFR if africn AM 85 mL/mi n/1.7 3 >59 Not Available [facility] ([facility]) [address] [place], [address], 01/04/2019 06:09:50 01/01/20 19 01/01/2019 CMP, serum or plasm a BUN/creatini ne ratio 16 9-20 Not Available [facility] ([facility]) [address] [place], [address], 01/04/2019 06:09:50 01/01/20 19 01/01/2019 CMP, serum or plasm a sodium 143 mmol/ L 134-14 4 Not Available [facility] ([facility]) [address] [place], [address], 01/04/2019 06:09:50 01/01/20 19 01/01/2019 CMP, serum or plasm a potassium 4.6 mmol/ L 3.5-5. 2 Not Available [facility] ([facility]) [address] [place], [address], 01/04/2019 06:09:50 01/01/20 19 01/01/2019 CMP, serum or plasm a chloride 102 mmol/ L 96-106 Not Available [facility] ([facility]) [address] [place], [address], 01/04/2019 06:09:50 01/01/2001/01/2019 CMP, serum or plasm a carbon dioxide, total 24 mmol/ L Not Available [facility] ([facility]) [address] [place], [address], 01/04/2019 06:09:50 01/01/2001/01/2019 CMP, serum or plasm a calcium 9.9 mg/dL 8.7-10 .2 Not Available [facility] ([facility]) [address] [place], [address], 01/04/2019 06:09:50 01/01/2001/01/2019 CMP, serum or plasm a protein, total 7.1 g/dL 6.0-8. 5 Not Available [facility] ([facility]) [address] [place], [address], 01/04/2019 06:09:50 01/01/2001/01/2019 CMP, serum or plasm a albumin 5.1 g/dL 3.5-5. 5 Not Available [facility] ([facility]) [address] [place], [address], 01/04/2019 06:09:50 01/01/2001/01/2019 CMP, serum or plasm a globulin, total 2.0 g/dL 1.5-4. 5 Not Available [facility] ([facility]) [address] [place], [address], 01/04/2019 06:09:50 01/01/2001/01/2019 CMP, serum or plasm a A/G ratio 2.6 1.2-2. 2 above high normal Not Available [facility] ([facility]) [address] [place], [address], 01/04/2019 06:09:50 01/01/2001/01/2019 CMP, serum or plasm a bilirubin, total 1.1 mg/dL 0.0-1. 2 Not Available [facility] ([facility]) [address] [place], [address], 01/04/2019 06:09:50 01/01/20 19 01/01/2019 CMP, serum or plasm a alkaline phosphatase 73 IU/L 39-117 Not Available [facility] ([facility]) [address] [place], [address], 01/04/2019 06:09:50 01/01/2001/01/2019 CMP, serum or plasm a AST (SGOT) 16 IU/L 0-40 Not Available [facility] ([facility]) [address] [place], [address], 01/04/2019 06:09:50 01/01/20 19 01/01/2019 CMP, serum or plasm a ALT (SGPT) 12 IU/L 0-44 Not Available [facility] ([facility]) [address] [place], [address], 01/04/2019 06:09:50 01/01/2001/04/2019 CT + NG RNA, PCR, unspe cifie d speci men chlamydia trachomatis, PANKAJ NEGATI VE negati ve Not Available [facility] ([facility]) [address] [place], [address], 01/04/2019 06:09:50 01/01/2001/04/2019 CT + NG RNA, PCR, unspe cifie d speci men neisseria gonorrhoeae, PANKAJ NEGATI VE negati ve Not Available [facility] ([facility]) [address] [place], [address], 01/04/2019 06:09:50 01/01/20 19 01/01/2019 RPR (rapi d plasm a reagi n), serum RPR NON REACTI VE non reacti ve Not Available [facility] ([facility]) [address] [place], [address], 01/04/2019 06:09:51 01/01/2001/01/2019 HIV 1+2 AB + HIV 1 p24 Ag, quali tativ e immun oassa y, serum HIV screen 4TH generation wrfx NON REACTI VE non reacti ve Not Available [facility] ([facility]) [address] [facility], [place], [address], 01/04/2019 06:09:51 06/18/19 20 06/19/2019 HIV 1+2 AB + HIV 1 p24 Ag, quali tativ e immun oassa y, serum HIV screen 4TH generation wrfx NON REACTI VE non reacti ve Not Available [facility] ([facility]) [address] [place], [address], 06/19/2019 06:23:48 12/28/1912/29/2019 HIV 1+2 AB + HIV 1 p24 Ag, quali tativ e immun oassa y, serum HIV screen 4TH generation wrfx NON REACTI VE non reacti ve Not Available [facility] ([facility]) [address] [facility], [place], [address], 12/29/2019 07:15:22 01/07/20 20 01/08/2020 CBC w/ auto diff WBC 5.3 x10e3 /uL 3.4-10 .8 Not Available [facility] ([facility]) [address] [place], [address], 01/08/2020 09:12:59 01/07/2001/08/2020 CBC w/ auto diff RBC 5.20 x10e6 /uL 4.14-5 .80 Not Available [facility] ([facility]) [address] [place], [address], 01/08/2020 09:12:59 01/07/2001/08/2020 CBC w/ auto diff hemoglobin 15.7 g/dL 13.0-1 7.7 Not Available [facility] ([facility]) [address] [facility], [place], [address], 01/08/2020 09:12:59 01/07/20 20 01/08/2020 CBC w/ auto diff hematocrit 47.7 % 37.5-5 1.0 Not Available [facility] ([facility]) [address] [facility], [place], [address], 01/08/2020 09:12:59 01/07/20 20 01/08/2020 CBC w/ auto diff MCV 92 fL 79-97 Not Available [facility] ([facility]) [address] [facility], [place], [address], 01/08/2020 09:12:59 01/07/2001/08/2020 CBC w/ auto diff MCH 30.2 pg 26.6-3 3.0 Not Available [facility] ([facility]) [address] [facility], [place], [address], 01/08/2020 09:12:59 01/07/20 20 01/08/2020 CBC w/ auto diff MCHC 32.9 g/dL 31.5-3 5.7 Not Available [facility] ([facility]) [address] [facility], [place], [address], 01/08/2020 09:12:59 01/07/2001/08/2020 CBC w/ auto diff RDW 13.3 % 11.6-1 5.4 Not Available [facility] ([facility]) [address] [facility], [place], [address], 01/08/2020 09:12:59 01/07/2001/08/2020 CBC w/ auto diff platelets 196 x10e3 /uL 150-45 0 Not Available [facility] ([facility]) [address] [facility], [place], [address], 01/08/2020 09:12:59 01/07/20 20 01/08/2020 CBC w/ auto diff neutrophils 67 % not estab. Not Available [facility] ([facility]) [address] [facility], [place], [address], 01/08/2020 09:12:59 01/07/20 20 01/08/2020 CBC w/ auto diff lymphs 19 % not estab. Not Available [facility] ([facility]) [address] [facility], [place], [address], 01/08/2020 09:12:59 01/07/20 20 01/08/2020 CBC w/ auto diff monocytes 11 % not estab. Not Available [facility] ([facility]) [address] [place], [address], 01/08/2020 09:12:59 01/07/20 20 01/08/2020 CBC w/ auto diff eos 2 % not estab. Not Available [facility] ([facility]) [address] [facility], [place], [address], 01/08/2020 09:12:59 01/07/20 20 01/08/2020 CBC w/ auto diff basos 1 % not estab. Not Available [facility] ([facility]) [address] [facility], [place], [address], 01/08/2020 09:12:59 01/07/20 20 01/08/2020 CBC w/ auto diff immature cells TRAVEL ACCOMMODATION INSPECTOR Not Available [facility] ([facility]) [address] [place], [address], 01/08/2020 09:12:59 01/07/20 20 01/08/2020 CBC w/ auto diff neutrophils (absolute) 3.6 x10e3 /uL 1.4-7. 0 Not Available [facility] ([facility]) [address] [place], [address], 01/08/2020 09:12:59 01/07/20 20 01/08/2020 CBC w/ auto diff lymphs (absolute) 1.0 x10e3 /uL 0.7-3. 1 Not Available [facility] ([facility]) [address] [facility], [place], [address], 01/08/2020 09:12:59 01/07/2001/08/2020 CBC w/ auto diff monocytes(ab solute) 0.6 x10e3 /uL 0.1-0. 9 Not Available [facility] ([facility]) [address] [facility], [place], [address], 01/08/2020 09:12:59 01/07/2001/08/2020 CBC w/ auto diff eos (absolute) 0.1 x10e3 /uL 0.0-0. 4 Not Available [facility] ([facility]) [address] [facility], [place], [address], 01/08/2020 09:12:59 01/07/2001/08/2020 CBC w/ auto diff baso (absolute) 0.0 x10e3 /uL 0.0-0. 2 Not Available [facility] ([facility]) [address] [facility], [place], [address], 01/08/2020 09:12:59 01/07/2001/08/2020 CBC w/ auto diff immature granulocytes 0 % not estab. Not Available [facility] ([facility]) [address] [facility], [place], [address], 01/08/2020 09:12:59 01/07/2001/08/2020 CBC w/ auto diff immature grans (abs) 0.0 x10e3 /uL 0.0-0. 1 Not Available [facility] ([facility]) [address] [facility], [place], [address], 01/08/2020 09:12:59 01/07/2001/08/2020 CBC w/ auto diff NRBC TRAVEL ACCOMMODATION INSPECTOR Not Available [facility] ([facility]) [address] [facility], [place], [address], 01/08/2020 09:12:59 01/07/20 20 01/08/2020 CBC w/ auto diff hematology comments: TRAVEL ACCOMMODATION INSPECTOR Not Available [facility] ([facility]) [address] [place], [address], 01/08/2020 09:12:59 01/07/20 20 01/08/2020 CMP, serum or plasm a glucose 92 mg/dL 65-99 Not Available [facility] ([facility]) [address] [place], [address], 01/08/2020 09:12:59 01/07/20 20 01/08/2020 CMP, serum or plasm a BUN 14 mg/dL 6-24 Not Available [facility] ([facility]) [address] [place], [address], 01/08/2020 09:12:59 01/07/20 20 01/08/2020 CMP, serum or plasm a creatinine 1.06 mg/dL 0.76-1 .27 Not Available [facility] ([facility]) [address] [place], [address], 01/08/2020 09:12:59 01/07/20 20 01/08/2020 CMP, serum or plasm a eGFR if nonafricn AM 87 mL/mi n/1.7 3 >59 Not Available [facility] ([facility]) [address] [place], [address], 01/08/2020 09:12:59 01/07/20 20 01/08/2020 CMP, serum or plasm a eGFR if africn AM 100 mL/mi n/1.7 3 >59 Not Available [facility] ([facility]) [address] [place], [address], 01/08/2020 09:12:59 01/07/20 20 01/08/2020 CMP, serum or plasm a BUN/creatini ne ratio 13 9-20 Not Available [facility] ([facility]) [address] [place], [address], 01/08/2020 09:12:59 01/07/2001/08/2020 CMP, serum or plasm a sodium 140 mmol/ L 134-14 4 Not Available [facility] ([facility]) [address] [place], [address], 01/08/2020 09:12:59 01/07/2001/08/2020 CMP, serum or plasm a potassium 4.9 mmol/ L 3.5-5. 2 Not Available [facility] ([facility]) [address] [place], [address], 01/08/2020 09:12:59 01/07/2001/08/2020 CMP, serum or plasm a chloride 105 mmol/ L 96-106 Not Available [facility] ([facility]) [address] [place], [address], 01/08/2020 09:12:59 01/07/20 20 01/08/2020 CMP, serum or plasm a carbon dioxide, total 24 mmol/ L 20-29 Not Available [facility] ([facility]) [address] [place], [address], 01/08/2020 09:12:59 01/07/2001/08/2020 CMP, serum or plasm a calcium 9.6 mg/dL 8.7-10 .2 Not Available [facility] ([facility]) [address] [place], [address], 01/08/2020 09:12:59 01/07/2001/08/2020 CMP, serum or plasm a protein, total 6.9 g/dL 6.0-8. 5 Not Available [facility] ([facility]) [address] [place], [address], 01/08/2020 09:12:59 01/07/2001/08/2020 CMP, serum or plasm a albumin 4.8 g/dL 4.0-5. 0 Not Available [facility] ([facility]) [address] [place], [address], 01/08/2020 09:12:59 01/07/2001/08/2020 CMP, serum or plasm a globulin, total 2.1 g/dL 1.5-4. 5 Not Available [facility] ([facility]) [address] [place], [address], 01/08/2020 09:12:59 01/07/2001/08/2020 CMP, serum or plasm a A/G ratio 2.3 1.2-2. 2 above high normal Not Available [facility] ([facility]) [address] [place], [address], 01/08/2020 09:12:59 01/07/2001/08/2020 CMP, serum or plasm a bilirubin, total 1.0 mg/dL 0.0-1. 2 Not Available [facility] ([facility]) [address] [place], [address], 01/08/2020 09:12:59 01/07/2001/08/2020 CMP, serum or plasm a alkaline phosphatase 71 IU/L 39-117 Not Available [facility] ([facility]) [address] [place], [address], 01/08/2020 09:12:59 01/07/2001/08/2020 CMP, serum or plasm a AST (SGOT) 17 IU/L 0-40 Not Available [facility] ([facility]) [address] [place], [address], 01/08/2020 09:12:59 01/07/2001/08/2020 CMP, serum or plasm a ALT (SGPT) 16 IU/L 0-44 Not Available [facility] ([facility]) [address] [place], [address], 01/08/2020 09:12:59 01/07/2001/08/2020 urina lysis , compl ete specific gravity 1.018 1.005- 1.030 Not Available [facility] ([facility]) [address] [place], [address], 01/08/2020 09:13:00 01/07/2001/08/2020 urina lysis , compl ete pH 6.5 5.0-7. 5 Not Available [facility] ([facility]) [address] [place], [address], 01/08/2020 09:13:00 01/07/2001/08/2020 urina lysis , compl ete urine-color Yellow yellow Not Available [facility] ([facility]) [address] [place], [address], 01/08/2020 09:13:00 01/07/2001/08/2020 urina lysis , compl ete appearance Clear clear Not Available [facility] ([facility]) [address] [place], [address], 01/08/2020 09:13:00 01/07/2001/08/2020 urina lysis , compl ete WBC esterase Negati ve negati ve Not Available [facility] ([facility]) [address] [place], [address], 01/08/2020 09:13:00 01/07/2001/08/2020 urina lysis , compl ete protein Negati ve negati ve/tra ce Not Available [facility] ([facility]) [address] [place], [address], 01/08/2020 09:13:00 01/07/2001/08/2020 urina lysis , compl ete glucose Negati ve negati ve Not Available [facility] ([facility]) [address] [place], [address], 01/08/2020 09:13:00 01/07/2001/08/2020 urina lysis , compl ete ketones Negati ve negati ve Not Available [facility] ([facility]) [address] [place], [address], 01/08/2020 09:13:00 01/07/2001/08/2020 urina lysis , compl ete occult blood Negati ve negati ve Not Available [facility] ([facility]) [address] [place], [address], 01/08/2020 09:13:00 01/07/2001/08/2020 urina lysis , compl ete bilirubin Negati ve negati ve Not Available [facility] Lab) [address] [place], [address], 01/08/2020 09:13:00 01/07/2001/08/2020 urina lysis , compl ete urobilinogen ,semi-qn 0.2 mg/dL 0.2-1. 0 Not Available [facility] ([facility]) [address] [place], [address], 01/08/2020 09:13:00 01/07/2001/08/2020 urina lysis , compl ete nitrite, urine Negati ve negati ve Not Available [facility] ([facility]) [address] [place], [address], 01/08/2020 09:13:00 01/07/2001/08/2020 urina lysis , compl ete microscopic examination Commen t Micro scopi c not indic ated and not perfo rmed. Not Available [facility] ([facility]) [address] [place], [address], 01/08/2020 09:13:00 01/07/2001/08/2020 lipid panel , serum cholesterol, total 147 mg/dL 100-19 9 Not Available [facility] ([facility]) [address] [place], [address], 01/08/2020 09:13:00 01/07/20 20 01/08/2020 lipid panel , serum triglyceride s 120 mg/dL 0-149 Not Available [facility] ([facility]) [address] [place], [address], 01/08/2020 09:13:00 01/07/20 20 01/08/2020 lipid panel , serum HDL cholesterol 41 mg/dL >39 Not Available [facility] ([facility]) [address] [place], [address], 01/08/2020 09:13:00 01/07/20 20 01/08/2020 lipid panel , serum VLDL cholesterol boni 22 mg/dL 5-40 Not Available [facility] ([facility]) [address] [place], [address], 01/08/2020 09:13:00 01/07/20 20 01/08/2020 lipid panel , serum LDL chol calc ([facility]) 84 mg/dL 0-99 Not Available [facility] ([facility]) [address] [place], [address], 01/08/2020 09:13:00 01/07/2001/08/2020 lipid panel , serum comment: TRAVEL ACCOMMODATION INSPECTOR Not Available [facility] ([facility]) [address] [place], [address], 01/08/2020 09:13:00 01/07/2001/08/2020 HIV 1+2 AB + HIV 1 p24 Ag, quali tativ e immun oassa y, serum HIV screen 4TH generation wrfx Non Reacti ve non reacti ve Not Available [facility] ([facility]) [address] [place], [address], 01/08/2020 09:13:01 05/09/19 18 05/09/2017 CT, chest + abdom en + pelvi s, w/ contr ast No observ ation record ed. oajao [facility] (Radiology) [address] [place], [address], 05/09/2017 14:41:19 03/25/[address], abdom en + pelvi s, w/o contr ast No observ ation record ed. [address] [facility], [place], [address], 03/25/2018 11:39:49 03/25/20 18 XR, abdom en No observ ation record ed. [address] [address], [place], [address], 03/25/2018 11:49:15 11/02/19 20 10/22/2019 XR, finge r(s) No observ ation record ed. [address] [address], [place], [address], Ph [phone] 01/05/2020 10:41:47 01/06/20 20 01/05/2020 XR, lumbo sacra l spine No observ ation record ed. [facility] ([facility]) [address] [place], [address], 01/13/2020 10:42:27 03/02/20 21 03/02/2021 PFT, compl ete No observ ation record ed. [address] [address], [place], [address], 03/02/2021 22:19:34 Result Notes None recorded. Problems Name Problem SNOMED Code Status Onset Date Resolution Date Notes Provider Name and Address Organization Details Recorded Time Anxiety 42527431 Active Jaziel Osullivan MD Attn: Peter g,[address] [facility], [place], [address], [facility] - [facility] 6 16:12:27 Hyperlipid emia 81772979 Active Labs 11/24/13 Triglyceri ba 181 Jaziel Osullivan MD Attn: Accountin g,[address] [facility], [place], [address], [facility] - [facility] 6 16:12:27 Abdominal pain 96534014 Active Jaziel Osullivan MD Attn: Accountin g,[address] [facility], [place], [address], [place] [facility] 6 20:43:47 Epigastric pain 38790244 Active Jaziel Osullivan MD Attn: Accountin g,[address] [facility], [place], [address], [place] [facility] 6 16:12:27 Generalize d anxiety disorder 77684369 Active Jaziel Osullivan MD Attn: Accountin g,[address] [facility], [place], [address], [place] [facility] 6 16:12:27 Tobacco dependence syndrome 03621709 Active Jaziel Osullivan MD Attn: Accountin g,[address] [facility], [place], [address], [place] [facility] 6 16:12:27 Pancreatit is 89795265 Active Jaziel Osullivan MD Attn: Accountin g,[address] [facility], [place], [address], [place] [facility] 6 20:43:47 Rhabdomyol ysis 554081552 Active Jaziel Osullivan MD Attn: Accountin g,[address] [facility], [place], [address], [place] [facility] 6 20:43:47 Unexplaine d weight loss 286933807 Active Jaziel Osullivan MD Attn: Accountin g,[address] [facility], [place], [address], [place] [facility] 6 20:43:47 Low back pain 996248158 Active Jaziel Osullivan MD Attn: Accountin g,[address] [facility], [place], [address], [place] [facility] 6 20:43:47 Eruption 998701465 Active Jaziel Osullivan MD Attn: Accountin g,[address] [facility], [place], [address], [place] [facility] 6 19:28:17 Pityriasis versicolor 45844319 Active Jaziel Osullivan MD Attn: Peter farida,[address] [place], [address], [place] [facility] 6 12:56:25 Recurrent genital herpes simplex 565780374 Active Jaziel Osullivan MD Attn: Peter iqbal,[address] [place], [address], [place] [facility] 6 19:28:17 Laboratory test result abnormal 211526888 Active Jaziel Osullivan MD Attn: Peter iqbal,[address] [place], [address], [place] [facility] 6 19:28:17 Genital herpes simplex 12215422 Active Jaziel Osullivan MD Attn: Peter iqbal,[address] [place], [address], [place] [facility] 6 12:56:25 Pain of shoulder region 64637168 Active 2013 Jaziel Osullivan MD Attn: Peter iqbal,[address] [place], [address], [place] [facility] 6 16:12:27 Backache 433681549 Active 2013 Jaziel Osullivan MD Attn: Peter iqbal,[address] [place], [address], [place] [facility] 6 16:12:27 Pain of elbow region 10100622 Active 2013 Jaziel Osullivan MD Attn: Peter iqbal,[address] [place], [address], [place] [facility] 6 16:12:27 Risk of exposure to communicab le disease 297704580 Active 2016 Jaziel Osullivan MD Attn: Peter iqbal,[address] [place], [address], [place] [facility] 7 08:43:51 Tobacco dependence in remission 919684454 Active 2017 Jaziel Osullivan MD Attn: Peter iqbal,[address] [facility], [place], [address], [place] [facility] 8 19:28:53 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 220466229 Active 2017 Jaziel Osullivan MD Attn: Peter iqbal,[address] [facility], [place], [address], [place] [facility] 8 19:28:55 Body mass index 25-29 - overweight 275688639 Active 2018 Jaziel Osullivan MD Attn: Peter iqbal,[address] [facility], [place], [address], [place] [facility] 9 16:31:34 Obstructiv e sleep apnea syndrome 13302237 Active 2019 Jaziel Osullivan MD Attn: Lettyjuan iqbal,[address] [facility], [place], [address], [place] [facility] 0 16:33:05 Elevated blood-pres sure reading without diagnosis of hypertensi on 800478029 Active 2019 Jaziel Osullivan MD Attn: Lettyjuan iqbal,[address] [facility], [place], [address], [place] [facility] 0 16:33:07 Influenza vaccinatio n declined 325289457 Active 2019 Jaziel Osullivan MD Attn: Lettyjuan iqbal,[address] [facility], [place], [address], [place] [facility] 0 10:33:20 Problem Notes None recorded. Procedures Surgical History Date Name Laterality Status Provider Name and Address Organization Details Recorded Time 0 Vasectomy completed Jaziel Osullivan MD Attn: Accounting,[address] [facility], [place], [address], [place] [facility] 04/03/2020 13:05:58 05/18/201 8 colonoscopy completed Jaziel Osullivan MD Attn: Accounting,[address] [facility], [place], [address], [facility] - [facility] 06/24/2019 16:21:30 4 Knee Surgery completed July Natalie [facility] - [facility] 03/01/2014 14:53:19 4 Eye Surgery completed July [facility] - [facility] 03/01/2014 14:53:19 Shoulder joint surgery completed Jaziel Osullivan MD Attn: Accounting,[address] [facility], [place], [address], [facility] - [facility] 05/02/2017 19:10:41 Imaging Results None recorded. Procedure Notes None recorded. Medical Equipment None Reported. Allergies Allergen ID Allergen Name Allergen Category Reaction Reaction Severity Criticality Documentation Date Start Date Code Code System Note Provider Name and Address Organization Details Recorded Time 30018 Product containin g penicilli n (product) medicatio n Not available Not available Not available 01/03/2015 48394 8001 SNOMED Barbara smith, [place], [place] - [facility] 5 11:21:30 Medications Name Sig Start Date Stop Date Status Note LastModified by Organization Details LastModified Time Prescripti on - Prior Authorizat ion Request 1QD 03/29 completed Not Available Not Available Not Available carisoprod ol 350 mg tablet 12/31 completed Not Available Not Available Not Available ketoconazo le 2 % shampoo APPLY TO THE AFFECTED AREA(S), LATHER, LEAVE IN PLACE FOR 5 MINUTES, AND THEN RINSE OFF WITH WATER BY TOPICAL ROUTE ONCE DAILY for 3 days. Then 3/week 2019 active Not Available Not Available Not Avai lable fluconazol e 150 mg tablet Take 2 tablets every week by oral route as directed for 14 days. 2019 active Not Available Not Available Not Avai lable valacyclov ir 1 gram tablet Take 1 tablet every day by oral route as directed for 90 days. 12/31 completed Not Available Not Available Not Available hydrocodon e 5 mg-acetami nophen 325 mg tablet 12/31 completed Not Available Not Available Not Available promethazi ne 12.5 mg tablet 08/10 completed Not Available Not Available Not Available ondansetro n HCl 4 mg tablet 08/10 completed ER Not Available Not Available Not Available omeprazole 40 mg capsule,de layed release Take 1 capsule every day by oral route. 08/10 completed Not Available Not Available Not Available tramadol 50 mg tablet 08/10 completed Not Available Not Available Not Available acyclovir 800 mg tablet Take 1 tablet twice a day by oral route as directed for 5 days. 2019 active Not Available Not Available Not Avai lable oxycodone- acetaminop hen 5 mg-325 mg tablet 05/02 completed Not Available Not Available Not Available famotidine 20 mg tablet active Not Available Not Available Not Available omeprazole 20 mg capsule,de layed release Take 1 capsule every day by oral route for 30 days. 11/26 completed Not Available Not Available Not Available diclofenac sodium 75 mg tablet,del ayed release Take 1 tablet twice a day by oral route for 30 days. 2013 active Not Available Not Available Not Avai lable acyclovir 200 mg capsule 08/10 completed Not Available Not Available Not Available lorazepam 1 mg tablet 08/10 completed Pain clinic Not Available Not Available Not Available indomethac in ER 75 mg capsule,ex tended release 12/31 completed Not Available Not Available Not Available azithromyc in 500 mg tablet Take 4 tablets every day by oral route as directed for 1 day. 02/11 completed Not Available Not Available Not Available cyclobenza ba 5 mg tablet 05/02 completed Not Available Not Available Not Available Factive 320 mg tablet Take 1 tablet every day by oral route as directed for 1 day. 02/11 completed Not Available Not Available Not Available Truvada 200 mg-300 mg tablet Take 1 tablet every day by oral route as directed for 30 days. 12/31 completed Not Available Not Available Not Available selenium sulfide 2.25 % shampoo Apply once a week 03/29 completed Not Available Not Available Not Available Mucinex D 02/11 completed Not Available Not Available Not Available GaviLyte-G 236 gram-22.74 gram-6.74 gram-5.86 gram oral solution 08/10 completed Not Available Not Available Not Available selenium sulfide 2.5 % lotion Apply daily for one week, then apply twice a week for maintena nce/prev ention.o nce a week 03/29 completed Not Available Not Available Not Available Vitals Date Recorded Body height Body mass index (BMI) Body weight Body temperature Oxygen saturation Oxygen saturation in Arterial blood by Pulse oximetry Heart rate Systolic And Diastolic Provider Name and Address Organization Details Last Updated DateTime 8 190.5 cm 22.8 kg/m2 69136.2 4 g 97.7 [degF] 97 % 97 % 70 /min 112/72 mm[Hg] Melissa Vargas MA [facility] 8 16:34:29 Date Recorded Systolic And Diastolic Provider Name and Address Organization Details Last Updated DateTime 06/24/2019 110/80 mm[Hg] Jaziel Osullivan MD Attn: Accounting,[address] [place], [address], [facility] 06/24/2019 16:19:15 Date Recorded Body height Body mass index (BMI) Body weight Oxygen saturation Oxygen saturation in Arterial blood by Pulse oximetry Heart rate Respiratory rate Systolic And Diastolic Provider Name and Address Organization Details Last Updated DateTime 0 190.5 cm 26.2 kg/m2 76931.6 8 g 98 % 98 % 74 /min 14 /min 130/90 mm[Hg] Melissa Vargas MA [facility] 0 16:05:36 Date Recorded Body height Body mass index (BMI) Body weight Body temperature Heart rate Oxygen saturation Oxygen saturation in Arterial blood by Pulse oximetry Respiratory rate Systolic And Diastolic Provider Name and Address Organization Details Last Updated DateTime 9 190.5 cm 25.6 kg/m2 06433.7 2 g 98.2 [degF] 74 /min 98 % 98 % 14 /min 114/76 mm[Hg] Melissa Vargas MA [facility] 9 16:32:59 Date Recorded Body height Body mass index (BMI) Body weight Body temperature Heart rate Oxygen saturation Oxygen saturation in Arterial blood by Pulse oximetry Respiratory rate Systolic And Diastolic Provider Name and Address Organization Details Last Updated DateTime 0 190.5 cm 25.6 kg/m2 72145.7 2 g 97.6 [degF] 66 /min 98 % 98 % 14 /min 116/74 mm[Hg] Melissa Vargas MA [facility] 0 10:31:11 Date Recorded Body height Body mass index (BMI) Body weight Oxygen saturation Oxygen saturation in Arterial blood by Pulse oximetry Heart rate Respiratory rate Systolic And Diastolic Provider Name and Address Organization Details Last Updated DateTime 9 190.5 cm 25.7 kg/m2 82263.8 7 g 97 % 97 % 72 /min 14 /min 122/70 mm[Hg] Melissa Vargas MA [facility] 9 16:25:52 Social History Question Answer Notes LastModified by [employer] Details LastModified Time Tobacco Smoking Status Former Smoker Melissa Vargas MA [facility], [facility] 05/02/2017 16:34:58 What Was The Date Of Your Most Recent Tobacco Screening? 01/05/2020 Information not available 01/05/2020 Are You Sexually Active? Yes Information not available 08/11/2015 How Much Tobacco Do You Smoke? No Information not available 05/02/2017 On What Date Was Tobacco Cessation Counseling Provided? 06/24/2019 Information not available 06/24/2019 Sex: Unknown Functional Status Question Answer Note LastModified by [employer] Details LastModified Time What is your level of alcohol consumption? None Information not available 12/31/2018 Do you or have you ever used smokeless tobacco? Never used smokeless tobacco Information not available 12/31/2018 Are you currently employed? 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 Never used electronic cigarettes Information not available 12/31/2018 Mental Status None recorded. Family History Relationship Description Onset Age of this Age Resolved Age Notes LastModified by Organization Details LastModified Time Sister Malignant neoplasm of ovary oajao Not available 2015 16:12:58 Medical History Condition Response Anxiety Disorder Y Skin Problems Y Muscle, Joint, or Bone Problems Y Kidney or Bladder Problems Y GI Problems Y Immunizations Vaccine Type Date Status Note Provider Nam e and Address Organization Details Recorded Time Tdap 6 completed Not Available [facility] 05/01/2019 02:46:08 Influenza, split virus, quadrivalent, PF 5 completed Not Available [facility] 05/01/2019 02:39:50 Influenza, split virus, quadrivalent, preservative 0 completed Rochelle Pantoja MA [facility] 03/29/2016 16:32:07 Past Encounters Encounter ID Performer Location Encounter Start Date Encounter Closed Date Diagnosis/Indication Diagnosis SNOMED-CT Code Diagnosis ICD10 Code Diagnosis Note [id number] MD Cristina Rojas (Adult Med) [address] [place] [phone] 03/01/2014 14:29:31 03/01/2014 16:04:41 Anxiety 17584744 PAtient's request for Alprazolam was denied Pain of elbow region 67706416 Pain of sh oulder region 61145404 Backache 427112552 Hyperlipidemia 66545918 [id number] Ney Moncada MD [facility] (Fam Med) [address] [place] [address] 01/03/2015 11:03:36 01/03/2015 13:48:05 Epigastric pain 31923783 With passing tarry stool and blood at times. will refer to GI specialist as requested. Increase omeprazole to 40mg daily, If the symptoms worse go to ER Generalize d anxiety disorder 05866195 Pt seems lots of anxiety issues. when discussed about different SSRI medication patient does not want to try any of them even from other group of medication . Recommend to see Psychiatri st Tobacco de pendence syndrome 10407010 Recommend to quit smoking at the earliest Needs infl uenza immunization 378267577 Will give it [id number] MD Cristina Rojas (Adult Med) [address] [place] [phone] 08/11/2015 15:46:52 08/11/2015 16:36:14 Pancreatitis 79744485 K85.9 R10.12 ER at [place] with pancreatit is, he went to the gastroente rologist in [facility] for an EGD and Colonoscop y, this has not been done, they have discharged him from their practice. He denies any current alcohol or recreation al drug use. He was also admitted to [facility] Rhabdomyolysis 165084936 M62.82 Admitted to rhabdomyol ysis in [facility] in the setting of Methamphet amine use. General ex amination of patient 525053696 Z00.01 Mr. Godinez returns, I last saw him in 11/2013, in the interim he saw Dr Moncada and he has had 2 knee surgeries as well as a couple of ER visits. 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 He does not recall the exact details, but it was in the setting of recreation al drug use that he was admitted locally with rhabdomyol ysis, he was also in the ER in June 2015 with genital herpes.. Preventive procedure 169 385514 Z40.9 He will benefit from PrEP as his is HIV positive and he does not use condoms, I however will need a negative HIV test and labs. He will also need to commit to regular labs and regular follow up visits. Unexplaine d weight loss 176328079 R63.4 Low back pain 768245179 M54.5 Abdominal pain 76071572 R10.9 I have previously reviewed the ER report and the CT scan both from 10/16/2014 which do not explain his LLQ pain, at that time his had called stating that he was told that he may have colon cancer. It was en recommende d that he follows up at the GI clinic at [facility], I do not believe that this was ever done. No relief from from Zantac, we will refill the Omeprazole Active or passive immunization 701934890 Z23 [id number] MD Cristina Rojas (Adult Med) [address] [place] [address] 11/27/2015 16:00:35 11/27/2015 16:54:27 Eruption 795833504 R21 Previously used Selenium Sulfide for his Tinea versicolor Pityriasis versicolor 56 501526 B36.0 Preventive procedure 169 631302 Z40.9 He will benefit from PrEP as his is HIV positive and he has chosen not to use condoms despite my advice, I however will need a repeat negative HIV test today as the last one is 2 months old. He will also need to commit to regular labs and regular follow up visits, he needs a note for work. Recurrent genital herpes simplex 722959695 A60.00 Recurrent GH for 4-5 years, he has another outbreak currently now and he was in the ER in June with an outbreak. Valtrex daily if covered, otherwise Acyclovir. Laboratory test result abnormal 459741323 R89.9 The etiology is unclear [id number] MD Cristina Rojas (Adult Med) [address] [place] [phone] 12/08/2015 09:47:07 12/08/2015 17:29:22 Genital herpes simplex 74961259 A60.9 The Valtrex doses for outbreaks (500mg po Q 12 hours for 3 days) and immunosupp ression (1GM po daily) were discussed in detail. He should continue that latter. Pityriasis versicolor 56 178490 B36.0 This was changed and previously faxed, I have reprinted the script for him. Preventive procedure 169 000525 Z40.9 The labs were just drawn this morning, this gives me cause for concern. The reason for this visit was to come in and start PrEP, he should have had his repeat HIV test done before this visit. He states that the lab was closed the last time he was here and that his had his lab order, I have reminded him that I will only prescribe PrEP if he complies with the instructio ns which include following up every 3 months and obtaining his labs every 3 months. He was given the [employer] printout about PrEP, I will see him in a week. [id number] MD Cristina Rojas (Adult Med) [address] [place] [phone] 12/15/2015 09:47:09 12/15/2015 10:11:12 Preventive procedure 424644212 Z40.9 The HIV results were negative, he has started using condoms, the use of PrEP was discussed, he should have his repeat HIV test done serially and follow up every 3 months, he is aware that compliance is vital. He was given a copy of the CDC printout about PrEP that he signed, I will see him in 3 months. I have discussed the side effects with him and I have made it abundantly clear that I will not refill his medication s without labs and regular follow up visits. [id number] MD Cristina Rojas (Adult Med) [address] [place] [phone] 03/29/2016 15:20:15 04/01/2016 11:20:03 Preventive procedure 819380553 Z40.9 The HIV results remain negative, he should continue his current dose and repeat his labs in 3 months. Urinary incontinence 165 815805 R32 Bipolar disorder 1793524 4 F31.9 He apparently has seen a psychiatri st in the past, he needs to get back in care. [id number] MD Cristina Rojas (Adult Med) [address] [place] [phone] 05/02/2017 16:21:35 05/02/2017 16:55:52 Adult health examination 320213904 Z00.01 Abnormal r adiographic imaging of pancreas 744310122 R93.3 The report of the CT scan of the A/P from 10/16/2014, do not suggest a hernia but suggest mild pancreatic duct dilatation and a splenic hemartoma. I have requested his most recent CT scan and he needs to be seen by a different GI provider. I have explained to him that even though he describes a ventral hernia and/or a diastasis rectii well, I am unable to demonstrat e either on exam. 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 2 He is convinced that he has an STD as he has a clear urethral discharge with no penile lesions. He also has an allergy to PCN and possibly to cephalospo rins.Facti ve, detailed discussion about the side effects including but not limited to cardiac and MSK.Azithr omycin, side effects especially nausea and vomiting were discussed [id number] MD Cristina Rojas (Adult Med) [address] [place] [phone] 02/11/2019 16:12:01 02/11/2019 18:46:21 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 512174957 A60.00 Body mass index 25-29 - overweight [id number] Z68.25 HIV screening [id number] Z11.4 Not ready to restart PrEP Skin lesion [id number] L98 .9 [id number] MD Cristina Rojas (Adult Med) [address] [place] [address] [phone] 06/24/2019 15:58:10 06/25/2019 10:22:28 Obstructive sleep apnea syndrome [id number] G47.33 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 [id number] A60.00 Elevated blood-pressure reading without diagnosis of hypertension [id number] R03.0 His blood pressure has always been normal.Ini tially he had a mildly elevated DBP, it was however, okay when it was rechecked Hyperplast ic polyp of large intestine [id number] K63.5 08/2017, Dr Raygoza [id number] MD Cristina Rojas (Adult Med) [address] [place] [address] [phone] 01/05/2020 10:20:42 01/06/2020 08:27:42 Influenza vaccination declined [id number] Z28.21 Vasectomy requested 9 75192 Z30.2 Antibiotic prophylaxis indicated [id number] Z78.9 Detailed discussion , as long as his remains undetectab le, he does not really neeed PrEP, the U+U data was discussed. He was offered Descovy, but he has declined.H e should still obtain serial HIV tests Pityriasis versicolor [id number] B36.0 He has previously used Selenium sulfide and failedKeto conazole shampoo and oral Fluconazol e worked but he feels that wearing his leather jacket recently has caused a flare. Low back pain [id number] M54.5 General ex amination of patient [id number] Z00.01 Health Concerns Section Related Observation LastModified by Organization Detai ls LastModified Time None Recorded Concern Status LastModified by Organization Details LastModified Time None Recorded Advance Directives Directive None Recorded Payers Insurance Date Sequence Insurance Name Policy Number Policy Miles Covered Member ID Miles Member ID Guarantor Name 07/30/2023 1 [facility] (PPO) [id number] Domanick Perkins [id number] Domanick Perkins 01/03/2015 SLIDING FEE SCHEDULE - DISCOUNT Domanick Perkins 05/10/2020 1 [place] Domanick Perkins [id number] Domanick Perkins 03/29/2016 1 [facility] (MEDICAID HMO) [id number] Domanick Perkins [id number] Domanick Perkins 05/02/2017 1 [employer] (PPO) [id number] Domanick Perkins [id number] Domanick Herbert 12/31/2018 1 [facility] [id number] Domanick G Perkins [id number] Domanick Herbert
--- OUTSIDE RECORDS SUMMARY | 2024-11-09 00:30 | XMS_ITS | Encounter Summary ---
Author Organization [facility] Address [address] [place] [address] Phone Care Team Providers Care Accounts Receivable Administrator Name Role Phone Vimal Tyson NP Primary Care Provider [phone] Encounter Details Date Type Department Care Team (Late st Contact Info) Description 08/09/2022 Documentation [facility] [address] [place] [address] Vanessa Holley Social History Tobacco Use Types Packs/Day Years Used Date Smoking Tobacco: Former Cigarettes Q uit: 06/14/2016 Smokeless Tobacco: Never AUDIT-C Answer Date Recorded Q1: How often do you have a drink containing alc ohol? Monthly or less 02/04/2022 Q2: How many drinks containi ng alcohol do you have on a typical day when you are drinking? 1 or 2 02/04/2022 Q3: How often do you have si x or more drinks on one occasion? 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
--- OUTSIDE RECORDS SUMMARY | 2024-11-09 00:30 | XMS_ITS | Clinical Summary ---
Author Organization [facility] Address [address] [place] [address] Care Team Providers Care Press Shop Supervisor Name Role Phone Vimal Tyson NP Primary Care Provider [phone] Allergies No known active allergies Medications aspirin 81 mg enteric coated tabletIndications: Exertional chest pain Take 1 tablet (81 mg total) by mouth daily 30 tablet 11 06/15/19 22 Active Additional Information Patient taking differently:81 mg oralEvery morning, Indications: heart health, Informant: Self, Reported on 12/24/2022 ALPRAZolam (XANAX) 1 mg tablet Take 1 tablet (1 mg total) by mouth nightly as needed for anxiety (CPAP use) 30 tablet 07/25/19 22 Active Additional Information Patient taking differently:1 mg oral Nightly PRN, anxiety, CPAP use,Indications: anxiety, Informant: Self, Reported on 12/24/2022 morphine (MSIR) 15 mg tabletIndications: Severe Pain Take 1 tablet (15 mg total) by mouth every 6 (six) hours as needed for pain 12 tablet 12/17/19 23 Active Additional Information Patient not taking.Informant: Self, Reported on 02/05/2023 meloxicam (MOBIC) 15 mg tabletIndications: Pain Take 1 tablet (15 mg total) by mouth daily as needed for pain Active fluticasone propionate (FLONASE) 50 mcg/actuation nasal sprayIndications:A llergic Conjunctivitis Administer 1 spray into each nostril daily as needed for rhinitis or allergies Active umeclidinium-vilan teroL (ANORO ELLIPTA) 62.5-25 mcg/actuation blister with deviceIndications: copd Inhale 1 puff daily as needed (copd) Active valACYclovir (VALTREX) 500 mg tabletIndications: Chronic Suppression,Prophy laxis, Medical Take 1 tablet (500 mg total) by mouth daily as needed (prophylatic) Active ibuprofen 200 mg tab/capIndications :Pain Take 2 tablet/capsule (400 mg total) by mouth every 6 (six) hours as needed for pain Active omeprazole (PriLOSEC) 40 mg capsuleIndications :gerd Take 1 capsule (40 mg total) by mouth telecommunications network planner before breakfast 30 capsule 11 12/22/19 24 025 Active Active Problems Problem Noted Date Diagnosed Date Closed displaced fracture of shaft of left clavi abdirashid 12/19/2022 History of colon polyps 08/14/2022 GERD without esophagitis 08/14/2022 Vitreous floaters of both eyes 02/12/2022 Assessment & Plan (02/12/2022 9:12 AM CDT): Monitor. Discussed signs and symptoms of Retinal tears or detachments. Pt understands to call immediately if noted. Otherwise, yearly dilated eye exams recommended. Retinal scar of both eyes 02/12/2022 Assessment & Plan (02/12/2022 9:13 AM CDT): SP multiple traumas. Monitor. Discussed signs and symptoms of Retinal tears or detachments. Pt understands to call immediately if noted. Abnormal laboratory test result 01/23/2022 Anxiety 01/23/2022 Epigastric pain 01/23/2022 Generalized anxiety disorder 01/23/2022 Hyperlipidemia 01/23/2022 Pancreatitis 01/23/2022 Rash 01/23/2022 Pityriasis versicolor 01/23/2022 Rhabdomyolysis 01/23/2022 Mass of nasopharynx 01/11/2022 Overview (01/11/2022): Added automatically from request for surgery [id number] Cough 10/02/2021 Simple renal cyst 08/30/2021 Pain in both lower extremities 08/20/2021 Erectile dysfunction 07/28/2021 Thick sputum 07/27/2021 Hypertrophy of nasal turbinates 06/19/2021 Perforation of nasal septum 06/19/2021 Mild chronic obstructive pulmonary disease 06/15 Left bundle branch block 06/14/2021 Marijuana abuse 06/14/2021 Pericardial effusion 05/31/2021 Gastroesophageal reflux disease without esophagi tis 05/31/2021 Dyspnea on exertion 02/08/2021 Fatigue 02/08/2021 Periodic limb movement disorder 02/08/2021 Elevated blood-pressure read ing without diagnosis of hypertension 06/24/2019 Recurrent genital herpes simplex type 2 infectio n 05/02/2017 Tobacco dependence in remission 05/02/2017 Clavicle pain 03/25/2017 Pain due to any device, implant or graft 017 Knee pain 01/07/2017 Tear of lateral collateral ligament of knee 10/12 Methicillin resistant Staphylococcus aureus infe ction 11/08/2013 Low back pain 09/27/2013 Shoulder pain 09/27/2013 Resolved Problems Problem Noted Date Diagnosed Date Resolved Date Unstable angina 08/06/2021 08/27/2021 Unstable angina 07/23/2021 07/28/2021 Overview (07/23/2021): Added automatically from request for surgery [id number] Encounters Date Type Department Care Team Description 11/08/2024 4:28 PM CDT - 11/08/2024 6:25 PM CDT Emergency [facility] Emergency Department [address] [place] [address] Discharge Disposition: Left without being seen from Last 3 Months Immunizations Immunization Administration Dates Next Due Influenza, Quadrivalent, Split, Intramuscular Influenza, Quadrivalent, Spl it, Preservative Free, Intramuscular 01/03/2015 Tdap 08/11/2015 Surgical History Surgery Date Site/Laterality Comments KNEE SURGERY Left multiple SHOULDER SURGERY Medical History Medical History Date Comments Sleep apnea COPD (chronic obstructive pu lmonary disease) ([facility]) Awareness under anesthesia pt re ports waking during knee surgery ~10 years ago Family History Medical History Relation Name Comments No Known Problems Father No Known Problems Mother Anesthesia problems Neg Hx Relation Name Status Comments Father Mother Social History Tobacco Use Types Packs/Day Years Used Date Smoking Tobacco: Former Cigarettes Q uit: 06/14/2016 Smokeless Tobacco: Never Tobacco Cessation:Counseling Given: Not Answered AUDIT-C Answer Date Recorded Q1: How often do you have a drink containing alc ohol? Never 04/08/2023 Average Number of Drinks Not on file 023 Frequency of Binge Drinking Not on file 03/15 Hunger Vital Sign Answer Date Recorded Within the past 12 months, y ou worried that your food would run out before you got the money to buy more. Never true 04/08/20 23 Within the past 12 months, t he food you bought just didn't last and you didn't have money to get more. Never true 04/08/2023 Personal Safety Answer Date Recorded Have you ever been in or are you currently in a harmful physical or emotional relationship or is someone making you feel afraid or unsafe? 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 Gender Identity Not on file Sexual Orientation Not on file Obstetrics History Last Filed Vital Signs Vital Sign Reading Time Taken Comments Blood Pressure 104/68 11/08/2024 4:40 PM CDT Pulse 105 11/08/2024 4:40 PM CDT Temperature 36.8 C (98.2 F) 11/08/2024 4:40 PM CDT Respiratory Rate 16 11/08/2024 4:40 PM CDT Oxygen Saturation 100% 11/08/2024 4:40 PM CDT Inhaled Oxygen Concentration - - Weight 80.7 kg (178 lb) 11/08/2024 4:40 PM CDT Height 190.5 cm (6' 3) 11/08/2024 4:40 PM CDT Body Mass Index 22.25 11/08/2024 4:40 PM CDT Plan of Treatment Health Maintenance Due Date Last Done Comments Colon Cancer Screening-Colonoscopy 1978 Depression Screening 1978 Hepatitis B Screening 1996 Regular Well Visit/Exam 18-64 1996 Pneumococcal vaccine <65 (1 of 2 - PCV) 1997 Influenza Vaccine (#1) 2024 5, 01/21/2010 DTaP/Tdap/Td Vaccine (2 - Td or Tdap) 08/10/2025 08/11/2015 Hepatitis C Screening Completed 07/23/2021 HPV Vaccines Aged Out No longer eligi ble based on patient's age to complete this topic Medical Devices Implanted Type Area Wireless Cellular Technician Device Identifier Shelf Expiration Date Model / Serial / Lot [employer]hew/Rich[employer]/Or tho 2.4mm 3.8mm 17mm Self Retaining Screwdriver Self Tap Flat Head [id number] - [id number] Implanted:Qty: 2 on 12/30/2022 by Miriam Porter MD at [facility] [employer]/Rich[employer]/Ort ho [id number] / / [employer]Rich[employer]/Or tho Evos Mini 2.4mm 22mm Self Tap Cortex T7 Screw Bone Sterile [id number] - [id number] Implanted:Qty: 1 on 12/30/2022 by Miriam Porter MD at [facility] [employer]/Rich[employer]/Ort ho [id number] / / [employer]/Or tho Evos Mini 2.4mm 26mm Self Tap Cortex T7 Screw Bone Sterile [id number] - [id number] Implanted:Qty: 1 on 12/30/2022 by Miriam Porter MD at [facility] [employer]Rich[employer]/Ort ho [id number] / / [employer]/Or tho Evos Mini 2.7mm 4.5mm 17mm Self Tap Cortex T8 Screw Bone [id number] - [id number] Implanted:Qty: 1 on 12/30/2022 by Miriam Porter MD at [facility] Read [employer]/Richco/Ort ho [id number] / / [employer]/Or tho Evos Mini 121mm 20 Hole Strenght Low Profile Variable Angle Small [id number] - [id number] Implanted:Qty: 1 on 12/30/2022 by Miriam Porter MD at [facility] [employer]/Rich[employer]/Ort ho [id number] / / [employer]/Or tho Evos Mini 140mm 20 Hole Flex Low Profile Variable Angle Small [id number] - [id number] Implanted:Qty: 1 on 12/30/2022 by Miriam Porter MD at [facility] [employer]/Rich[employer]/Ort ho [id number] / / [employer]Rich[employer]/Or tho 2.7mm 4.5mm 14mm Self Retaining Screwdriver Self Tap Flat Head [id number] - [id number] Implanted:Qty: 1 on 12/30/2022 by Miriam Porter MD at [facility] [employer]Rich[employer]/Ort ho [id number] / / [employer]Rich[employer]/Or tho 2.7mm 4.5mm 15mm Self Retaining Screwdriver Self Tap Flat Head [id number] - [id number] Implanted:Qty: 1 on 12/30/2022 by Miriam Porter MD at [facility] Read [employer]hew/Richco/Ort ho [id number] / / [employer]/Richco/Or tho 2.7mm 4.5mm 20mm Self Retaining Screwdriver Self Tap Flat Head [id number] - [id number] Implanted:Qty: 1 on 12/30/2022 by Miriam Porter MD at [facility] Read [employer]/Richco/Ort ho [id number] / / [employer]Rich[employer]/Or tho 2.7mm 4.5mm 28mm Self Tap Cortex T8 2mm Screw Bone Evos [id number] - [id number] Implanted:Qty: 1 on 12/30/2022 by Miriam Porter MD at [facility] Read [employer]/Richco/Ort ho [id number] / / [employer]/Richco/Or tho Evos 2.4mm 16mm Self Tap Self Retaining Drive Small Bone Long [id number] - [id number] Implanted:Qty: 1 on 12/30/2022 by Miriam Porter MD at [facility] Read [employer]/Richco/Ort ho [id number] / / [employer]Richco/Or tho Evos 2mm 3mm 18mm Self Tap Cortex T6 Screw Bone Mini Plate System [id number] - [id number] Implanted:Qty: 1 on 12/30/2022 by Miriam Porter MD at [facility] Read [employer]Rich[employer]/Ort [id number] / / [employer]hew[employer]Richco/Or tho Evos Mini 2.4mm 3.8mm 26mm Lock Long Bone Small Bone T7 Screw [id number] - [id number] Implanted:Qty: 1 on 12/30/2022 by Miriam Porter MD at [facility] Read [employer]hew/Richco/Ort [id number] / / Explanted Type Area Wireless Cellular Technician Device Identifier Shelf Expiration Date Model / Serial / Lot Read [employer] Nephew/Richco/O rtho Evos 2.7mm 4.5mm 16mm Self Tap Cortex T8 Screw Bone Mini Plate [id number] - [id number] Explanted:Qty: 2 on 12/30/2022 by Miriam Porter MD at [facility] Read [employer]Richco/Ort [id number] / / Procedures Procedure Name Priority Date/Time Associated Diagnosis Comments HEPATITIS C ANTIBODY STAT 07/23/2021 5:27 PM CDT from Last 3 Months or Most Recently Relevant to Health Maintenance Results * Hepatitis C antibody (07/23/2021 5:27 PM CDT) Hep C Ab Nonreactive Nonreactive [facility] Comment:Antibodies to HCV no t detected. Does NOT exclude the possibility of recent exposure to HCV. Blood 07/23/2021 5:27 PM CDT 07/23/2021 6:19 PM CDT us Corky hCan MD LAB MICROBIOLOGY - GENERAL ORD ERABLES Edited Result - Final [facility] [place] [address] from Last 3 Months or Most Recently Relevant to Health Maintenance Insurance [employer] BETTER [facility]TER [facility] Advance Directives For more information, please contact: [phone] * Full Code (Latest Code Status on File) Date Activated Date Inactivated Comments 07/23/2021 4:55 PM 07/24/2021 11:01 PM Care Teams Press Shop Supervisor Relationship Specialty Start Date End Date Vimal Tyson NP PCP - General Internal Medicine 06/14/21
--- OUTSIDE RECORDS SUMMARY | 2024-11-09 00:31 | XMS_ITS | Clinical Summary ---
Author Organization [facility] Address [facility] [place] [address] Care Team Providers Care Day Care Center Director Name Role Phone Unavailable Primary Care Provider Unavailabl e Social History Tobacco Use Types Packs/Day Years Used Date Smoking Tobacco: Never Assessed Sex and Gender Information Value Date Recorded Sex Assigned at Not on file Legal Sex Male 8:17 PM CDT Gender Identity Not on file Sexual Orientation Not on file Plan of Treatment Health Maintenance Due Date Last Done Comments Colorectal Cancer Screening Colonoscopy (10 Years) 1978 Annual Physical 1981 Hepatitis C 1996 DTaP, Tdap and Td Vaccines ( 1 - Tdap) 1997 Hepatitis B Vaccines (1 of 3 - 19+ 3-dose series) 1997 COVID-19 Vaccine (2023-2 5 season) 2023 HPV Vaccines Aged Out No longer eligi ble based on patient's age to complete this topic Meningococcal B Vaccine Aged Out No l onger eligible based on patient's age to complete this topic Meningococcal Vaccine Aged Out No bita haseeb eligible based on patient's age to complete this topic Pneumococcal Vaccine: Pediat rics (0 to 5 Years) and At-Risk Patients (6 to 49 Years) Aged Out No longer eligible b ased on patient's age to complete this topic RSV Immunizations Under 20 Months Aged Out No longer eligible based on patient's age to complete this topic Insurance AETNA
--- OUTSIDE RECORDS SUMMARY | 2024-11-09 00:31 | XMS_ITS | Clinical Summary ---
Author Organization [facility] Address [address] [place] [address] Care Team Providers Care Associate Web Developer Name Role Phone Unavailable Primary Care Provider Unavailabl e Source Comments [facility],non-owned Affiliates and Associated Physician Practices is amultiple site organization consisting of ambulatory clinics and hospital sitesin [place], [place], [place] and [place]. This disclosure is being madepursuant to the Care Everywhere program and may not contain all information available regarding this patient. 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 Gender Identity Not on file Sexual Orientation Not on file Last Filed Vital Signs Vital Sign Reading Time Taken Comments Blood Pressure 124/68 03/24/2017 12:15 AM SHELTER ADVOCATE Pulse 60 03/24/2017 12:01 AM SHELTER ADVOCATE Temperature 36.8 C (98.3 F) 03/23/2017 8:20 PM SHELTER ADVOCATE Respiratory Rate 15 03/24/2017 12:15 AM SHELTER ADVOCATE Oxygen Saturation 95% 03/24/2017 12:15 AM SHELTER ADVOCATE Inhaled Oxygen Concentration - - Weight 74.8 kg (165 lb) 03/23/2017 8:19 PM SHELTER ADVOCATE Height 190.5 cm (6' 3) 03/23/2017 8:19 PM SHELTER ADVOCATE Body Mass Index 20.62 03/23/2017 8:19 PM SHELTER ADVOCATE Plan of Treatment Health Maintenance Due Date Last Done Comments COLOGUARD (AGES 45-75) - COL ON CA SCREENING 1978 COLON MONITORING 1978 COLONOSCOPY - COLON CA SCREENING 1978 CT COLONOGRAPHY - COLON CA SCREENING 1978 Colorectal Cancer Screening 1978 FIT - COLON CA SCREENING 1978 FLEX SIG - COLON CA SCREENING 1978 LIPID TESTING 1978 HIV SCREENING 1993 HEPATITIS C SCREENING 10/20/1996 DTAP/TDAP/TD VACCINES (1 - Tdap) 1997 HEPATITIS B VACCINE (1 of 3 - 19+ 3-dose series) 1997 COVID-19 VACCINE (1 - 2023-2 5 season) 2023 DEPRESSION SCREENING 04/14/2024 INFLUENZA VACCINE (#1) 2024 ZOSTER VACCINE (1 of 2) 2028 HIB VACCINE Aged Out No longer eligi ble based on patient's age to complete this topic HPV VACCINE Aged Out No longer eligi ble based on patient's age to complete this topic MENINGOCOCCAL (Group B) VACC INE SHARED DECISION-MAKING Aged Out No longer eligibl e based on patient's age to complete this topic MENINGOCOCCAL GROUPS A/C/Y/W VACCINE Aged Out No longer eligible b ased on patient's age to complete this topic PNEUMOCOCCAL VACCINE Aged Out No long er eligible based on patient's age to complete this topic Insurance AETNA
--- OUTSIDE RECORDS SUMMARY | 2024-11-09 00:31 | XMS_ITS | Referral Summary ---
Author Organization [facility] Address [address] [place] [address] Care Team Providers Care Stock Parts Inspector Name Role Phone Vimal Tyson NP Primary Care Provider [phone] Encounters Date Type Department Care Team Description 11/08/2024 4:28 PM CDT - 11/08/2024 6:25 PM CDT Emergency [facility] Emergency Department [address] [place] [address] Discharge Disposition: Left without being seen from Last 3 Months Allergies No known active allergies Medications aspirin [...] 1 capsule (40 mg total) by mouth contact finger assembler before breakfast 30 capsule 11 12/22/19 24 [...] (01/11/2022): Added automatically from request for surgery [id number] Cough 10/02/2021 Simple renal cyst 08/30/2021 Pain [...] (07/23/2021): Added automatically from request for surgery [id number] Immunizations Immunization Administration Dates Next Due Influenza, Quadrivalent, Split, Intramuscular Influenza, Quadrivalent, Spl it, Preservative Free, Intramuscular 01/03/2015 Tdap 08/11/2015 Social History Tobacco Use Types Packs/Day Years [...] on file Legal Sex Male 11:00 AM [employer] Gender Identity Not on file Sexual Orientation [...] 11/08/2024 4:40 PM CDT Plan of Treatment Not on file Medical Devices Implanted Type Area Knot Tier Device Identifier Shelf Expiration Date Model / Serial / Lot [employer]Or tho 2.4mm 3.8mm 17mm Self Retaining Screwdriver Self Tap Flat Head [id number] - [id number] Implanted:Qty: 2 on 12/30/2022 by Miriam Porter MD at [facility] [employer]Ort [id number] / / [employer]Or tho Evos Mini 2.4mm 22mm Self Tap Cortex T7 Screw Bone Sterile [id number] - [id number] Implanted:Qty: 1 on 12/30/2022 by Miriam Porter MD at [facility] [employer]Ort ho [id number] / / [employer]Or tho Evos Mini 2.4mm 26mm Self Tap Cortex T7 Screw Bone Sterile [id number] - [id number] Implanted:Qty: 1 on 12/30/2022 by Miriam Porter MD at [facility] [employer]Ort ho [id number] / / [employer]/Or tho Evos Mini 2.7mm 4.5mm 17mm Self Tap Cortex T8 Screw Bone [id number] - [id number] Implanted:Qty: 1 on 12/30/2022 by Miriam Porter MD at [facility] [employer]Ort ho [id number] / / [employer]Or tho Evos Mini 121mm 20 Hole Strenght Low Profile Variable Angle Small [id number] - [id number] Implanted:Qty: 1 on 12/30/2022 by Miriam Porter MD at [facility] [employer]Ort ho [id number] / / [employer]Or tho Evos Mini 140mm 20 Hole Flex Low Profile Variable Angle Small [id number] - [id number] Implanted:Qty: 1 on 12/30/2022 by Miriam Porter MD at [facility] [employer]Ort ho [id number] / / [employer]/Or tho 2.7mm 4.5mm 14mm Self Retaining Screwdriver Self Tap Flat Head [id number] - [id number] Implanted:Qty: 1 on 12/30/2022 by Miriam Porter MD at [facility] [employer]Ort ho [id number] / / [employer]/Or tho 2.7mm 4.5mm 15mm Self Retaining Screwdriver Self Tap Flat Head [id number] - [id number] Implanted:Qty: 1 on 12/30/2022 by Miriam Porter MD at [facility] [employer]Ort ho [id number] / / [employer]/Or tho 2.7mm 4.5mm 20mm Self Retaining Screwdriver Self Tap Flat Head [id number] - [id number] Implanted:Qty: 1 on 12/30/2022 by Miriam Porter MD at [facility] [employer]/Ort ho [id number] / / [employer]/Or tho 2.7mm 4.5mm 28mm Self Tap Cortex T8 2mm Screw Bone Evos [id number] - [id number] Implanted:Qty: 1 on 12/30/2022 by Miriam Porter MD at [facility] [employer]/Ort ho [id number] / / [employer]/Or tho Evos 2.4mm 16mm Self Tap Self Retaining Drive Small Bone Long [id number] - [id number] Implanted:Qty: 1 on 12/30/2022 by Miriam Porter MD at [facility] [employer]/Ort ho [id number] / / [employer]/Or tho Evos 2mm 3mm 18mm Self Tap Cortex T6 Screw Bone Mini Plate System [id number] - [id number] Implanted:Qty: 1 on 12/30/2022 by Miriam Porter MD at [facility] [employer]Ort ho [id number] / / [employer]/Or tho Evos Mini 2.4mm 3.8mm 26mm Lock Long Bone Small Bone T7 Screw [id number] - [id number] Implanted:Qty: 1 on 12/30/2022 by Miriam Porter MD at [facility] [employer]/Ort ho [id number] / / Explanted Type Area Knot Tier Device Identifier Shelf Expiration Date Model / Serial / Lot [employer]/Rich[employer]/O rtho Evos 2.7mm 4.5mm 16mm Self Tap Cortex T8 Screw Bone Mini Plate [id number] - [id number] Explanted:Qty: 2 on 12/30/2022 by Miriam Porter MD at [facility] [employer]Al[employer] [id number] / / Procedures Procedure Name Priority Date/Time Associated Diagnosis Comments HEPATITIS C ANTIBODY STAT 07/23/2021 5:27 PM CDT from Last 3 Months or Most Recently Relevant to Health Maintenance Results * Hepatitis C antibody (07/23/2021 5:27 PM CDT) Hep C Ab Nonreactive Nonreactive [facility] Comment:Antibodies to HCV no t detected. Does NOT exclude the possibility of recent exposure to HCV. Blood 07/23/2021 5:27 PM CDT 07/23/2021 6:19 PM CDT us Corky Chan MD LAB MICROBIOLOGY - GENERAL ORD ERABLES Edited Result - Final [facility] [place] [address] from Last 3 Months or Most Recently Relevant to Health Maintenance Insurance [facility] AET BETTER [facility] AETNA BETTER [facility] Advance Directives For more information, please contact: [phone] * Full Code (Latest Code Status on File) Date Activated Date Inactivated Comments 07/23/2021 4:55 PM 07/24/2021 11:01 PM Care Teams Stock Parts Inspector Relationship Specialty Start Date End Date Vimal Tyson NP PCP - General Internal Medicine 06/14/21
--- OUTSIDE RECORDS SUMMARY | 2024-11-09 00:31 | XMS_ITS | Data Portability ---
Author Organization [facility], Main Office Address [address] [place] [address] Care Team Providers Care Telephonic Rn Name Role Phone YUNIOR JAVIER Primary Care Provider Assessment Encounter Date Assessment Date Assessment LastModified by Organization Details LastModified Time 06/26/2023 06/26/2023 epigastric hernia, enlarging. Symptomatic. Seen on CT scan. Options discussed patient. Will proceed with repair under anesthesia possibly using mesh. Risks and benefits were discussed with patient. Risks include bleeding, infection bowel injury [email or web address] Not available 06/26/2023 12:07:50 Plan of Treatment Reminders Order Date Submit Date Provider Last Modified By Organization Details Last Modified Time Details Appointments None recorded. Lab None recorded. Referral None recorded. Procedures None recorded. Surgeries None recorded. Imaging CT, chest, w/o contrast - DUE around 12/09/222022 023 [email or web address] [facility] ([facility]), [address] [place], [address], 3 09:38:36 Medication Orders levofloxaci n 500 mg tablet [address] [facility] [address] [facility] [place], [address], 4 08:40:37 Ciprodex 0.3 %-0.1 % ear drops,suspe nsion [address] [facility] [place], [address], 4 08:40:13 albuterol sulfate 2.5 mg/3 mL (0.083 %) solution for nebulizatio n 2022 023 [facility] [place], [address], 3 21:51:14 Patient TargetsNo targets recorded. Patient Instructions Encounter Date Encounter Id Patient Instructions Last Modified By Organization Details Last Modified Time 12/17/2023 [id number] Patient wishes t o discuss eustachian tube placement. Patient to see Dr. Lane for surgical consultation. [email or web address] Not available 12/17/2023 14:58:52 01/08/2024 [id number] we discussed Eustachian tube balloon dilatation [email or web address] Not available 01/08/2024 12:33:11 Reason for Referral None Reported. Results Created Date Observation Date Name Description Value Unit Range Abnormal Flag Note LastModifiedBy Organization Detail LastModifiedTime 06/29/19 23 06/11/2022 CT, chest , w/o contr ast No observ ation record ed. BARCODE Not Available 2022 12:17:28 Result Notes None recorded. Problems Name Problem SNOMED Code Status Onset Date Resolution Date Notes Provider Name and Address Organization Details Recorded Time Obstructiv e sleep apnea syndrome 18262904 Active 2019 Not Available [facility] 3 00:49:47 Periodic limb movement disorder 893394963 Active 2020 Not Available [facility] 3 00:49:46 Dyspnea on exertion 06542834 Active 2020 Not Available [facility] 3 00:49:46 Fatigue 29235726 Active 2020 Not Available [facility] 3 00:49:47 Gastroesop hageal reflux disease without esophagiti s 007554794 Active 2021 Not Available [facility] 3 00:49:46 Pericardia l effusion 690191485 Active 2021 Not Available [facility] 3 00:49:46 Mild chronic obstructiv e pulmonary disease 278921811 Active 2021 Not Available [facility] 3 00:49:46 Exposure to potentiall y harmful entity Active 2021 Not Available [facility] 3 00:49:46 Ex-smoker 3792092 Active 2021 Not Available [facility] 3 00:49:47 Hypertroph y of nasal turbinates 17383427 Active 2021 Not Available [facility] 3 00:49:46 Perforatio n of nasal septum 58414529 Active 2021 Not Available [facility] 3 00:49:47 Thick sputum 590645748 Active 2021 Not Available [facility] 3 00:49:46 Solitary nodule of lung 980514585 Active 2021 Not Available [facility] 3 00:49:46 Simple renal cyst 43941222 Active 2021 Not Available [facility] 3 00:49:47 Erectile dysfunctio n 874578375 Active 2021 Not Available [facility] 3 00:49:47 Tracey, not Tracey albicans 046051374 Active 2021 Not Available [facility] 3 00:49:46 Cough 67069258 Active 2021 Not Available [facility] 3 00:49:46 Fine respirator y crackles 55486162 Active 2021 Not Available [facility] 3 00:49:47 Mass of nasal sinus 9455612769813 0 Active 2021 Not Available [facility] 3 00:49:47 Pulmonary emphysema 99688508 Active 2022 HEATHER Spaulding [address] [facility], [place] [address], [place], [address] , [facility] 3 13:04:45 Marijuana user 310110344 Active 2022 HEATHER Spaulding [address] [facility], [facility] [address], [place], [address] , [facility] [email or web address] [facility] 3 13:04:55 Insomnia 993332265 Active 2022 GRACIA Ellison [address] [facility], [facility] [address], [place], [address] , [facility] [email or web address] [facility] 3 13:31:34 Epigastric hernia 325632564 Active 2023 Matias carson MD [address] [facility], [facility] [address], [place], [address] , [facility] [email or web address] [facility] 4 14:48:51 Bilateral chronic serous otitis 159782745 Active 2023 GRACIA Jules [address] [facility], [facility] [address], [place], [address] , [facility] [email or web address] [facility] 4 14:56:50 Dysfunctio n of bilateral eustachian tubes 4384911712640 100 Active 2023 Anastasia Young RN [facility], [facility] [email or web address] [facility] 4 12:29:52 Notes:Some problems listed i n Documents: #[id number], #[id number] could not be added to this patient's chart. Please review these documents and add these problems to the patient's chart manually as needed. Problem Notes None recorded. Procedures Surgical History Date Name Laterality Status Provider Name and Address Organization Details Recorded Time 07/24/19 Heart Catheterization completed Not Available [facility] 06/12/2022 00:46:09 reconstruction of anterior cruciate ligament of knee joint completed Not Available [facility] 06/12/2022 00:46:09 repair of meniscus completed Not Available [facility] 06/12/2022 00:46:09 closed reduction of fracture of knee completed Not Available [facility] 06/12/2022 00:46:09 excision of lesion of nose completed Melissa Orozco [facility] [email or web address] [facility] 12/17/2023 14:36:53 Imaging Results None recorded. Procedure Notes None recorded. Medical Equipment None Reported. Allergies No known drug allergies Medications Name Sig Start Date Stop Date Status Note LastModified by Organization Details LastModified Time amoxicillin 500 mg capsule TAKE 1 CAPSULE BY MOUTH EVERY 8 HOURS UNTIL GONE 06/19 completed Not Available Not Available Not Available prednisone 10 mg tablet TAKE 1 TABLET BY MOUTH ONCE DAILY 01/07 completed Not Available Not Available Not Available doxycycline hyclate 100 mg capsule TK ONE C PO DAILY 12/07 completed Not Available Not Available Not Available ketoconazol e 2 % shampoo 11/20 completed Not Available Not Available Not Available clindamycin HCl 300 mg capsule TK ONE C PO Q 8 H 12/06 completed Not Available Not Available Not Available albuterol sulfate 2.5 mg/3 mL (0.083 %) solution for nebulizatio n USE 1 VIAL IN NEBULIZER THREE TIMES DAILY active Not Available Not Available No t Available azithromyci n 250 mg tablet 01/29 completed Not Available Not Available Not Available ibuprofen 800 mg tablet TAKE 1 TABLET BY MOUTH THREE TIMES DAILY WITH FOOD NEEDED 07/27 completed Not Available Not Available Not Available alprazolam 1 mg tablet TAKE 1 TABLET BY MOUTH ONCE DAILY AT BEDTIME active Not Available Not Available No t Available fluconazole 150 mg tablet TAKE 1 TABLET BY MOUTH ON 11/22/23 AND TAKE 1 TABLET BY MOUTH ON 11/25/2301/07 completed Not Available Not Available Not Available benzonatate 200 mg capsule TK 1 C PO Q NIGHT 06/09 completed Not Available Not Available Not Available hydrocodone 5 mg-acetamin ophen 325 mg tablet active Not Available Not Available No t Available fluconazole 200 mg tablet TAKE 1 TABLET BY MOUTH ONCE DAILY DIRECTED FOR 7 DAYS active Not Available Not Available No t Available meloxicam 15 mg tablet TAKE 1 TABLET BY MOUTH ONCE DAILY active Not Available Not Available No t Available famotidine 40 mg tablet TAKE 1 TABLET BY MOUTH ONCE DAILY DIRECTED FOR 30 DAYS active Not Available Not Available No t Available prednisone 20 mg tablet TAKE 1 TABLET BY MOUTH TWICE DAILY FOR 3 DAYS 01/07 completed Not Available Not Available Not Available acetaminoph en 300 mg-codeine 30 mg tablet TAKE 1 TABLET BY MOUTH 4 TIMES DAILY NEEDED 07/27 completed Not Available Not Available Not Available valacyclovi r 500 mg tablet Take 1 tablet every 12 hours by oral route for 10 days. 01/07 completed Not Available Not Available Not Available omeprazole 40 mg capsule,del ayed release TAKE 1 CAPSULE BY MOUTH ONCE DAILY active Not Available Not Available No t Available tramadol 50 mg tablet TAKE 1 TABLET BY MOUTH EVERY 6 HOURS NEEDED FOR PAIN active Not Available Not Available No t Available acyclovir 800 mg tablet TK 1 T PO BID FOR 5 DAYS UTD 12/07 completed Not Available Not Available Not Available amoxicillin 875 mg tablet TAKE 1 TABLET BY MOUTH TWICE DAILY FOR 7 DAYS 01/07 completed Not Available Not Available Not Available triamcinolo ne acetonide 0.025 % topical cream APPLY CREAM EXTERNALL Y TO AFFECTED AREA TWICE DAILY FOR 7 DAYS 01/07 completed Not Available Not Available Not Available cephalexin 500 mg capsule TAKE 1 CAPSULE BY MOUTH 4 TIMES DAILY FOR 10 DAYS 01/07 completed Not Available Not Available Not Available oseltamivir 75 mg capsule TK 1 C PO BID 01/29 completed Not Available Not Available Not Available ceftriaxone 500 mg solution for injection Take 500 mg by injection route for 1 day. 01/07 completed Not Available Not Available Not Available levofloxaci n 500 mg tablet TAKE 1 TABLET BY MOUTH EVERY 24 HOURS FOR 7 DAYS 01/07 completed Not Available Not Available Not Available methylpredn isolone 4 mg tablets in a dose pack TAKE DIRECTED 01/07 completed Not Available Not Available Not Available albuterol sulfate HFA 90 mcg/actuati on aerosol inhaler INHALE 2 PUFFS BY MOUTH EVERY 4 TO 6 HOURS NEEDED 01/07 completed Not Available Not Available Not Available morphine 15 mg immediate release tablet TAKE 1 TABLET BY MOUTH EVERY 6 HOURS NEEDED FOR PAIN active Not Available Not Available No t Available indomethaci n ER 75 mg capsule,ext ended release active Not Available Not Available Not Available cefdinir 300 mg capsule TAKE 1 CAPSULE BY MOUTH TWICE DAILY 01/07 completed Not Available Not Available Not Available fluticasone propionate 50 mcg/actuati on nasal spray,suspe nsion USE 1 SPRAY(S) IN EACH NOSTRIL TWICE DAILY active Not Available Not Available No t Available diazepam 5 mg tablet 01/29 completed Not Available Not Available Not Available amoxicillin 875 mg-potassiu m clavulanate 125 mg tablet TAKE 1 TABLET BY MOUTH TWICE DAILY FOR 7 DAYS 01/07 completed Not Available Not Available Not Available neomycin-po lymyxin-hyd rocort 3.5 mg-10,000 unit/mL-1 % ear drops,susp 01/07 completed Not Available Not Available Not Available azithromyci n 500 mg tablet Take 2 tablets every day by oral route for 1 day. active Not Available Not Available No t Available ciprofloxac in 0.3 %-dexametha sone 0.1 % ear drops,suspe nsion INSTILL 4 DROPS INTO AFFECTED EAR(S) TWICE DAILY FOR 7 DAYS 01/07 completed Not Available Not Available Not Available Spiriva with HandiHaler 18 mcg and inhalation capsules INHALE 1 PUFF BY MOUTH ONCE DAILY DIRECTED FOR 30 DAYS 11/20 completed Not Available Not Available Not Available chlorhexidi ne gluconate 0.12 % mouthwash RINSE MOUTH WITH 15ML (1 CAPFUL) FOR 30 SECONDS AM AND PM AFTER TOOTHBRUS LUIGI. SPIT AFTER RINSING,D O NOT SWALLOW 07/27 completed Not Available Not Available Not Available aspirin active Not Available Not Avail able Not Available lidocaine (PF) 10 mg/mL (1 %) injection solution Take 1 mL by injection route. 01/07 completed Not Available Not Available Not Available Anoro Ellipta 62.5 mcg-25 mcg/actuati on powder for inhalation INHALE 1 PUFF BY MOUTH ONCE DAILY active Not Available Not Available No t Available selenium sulfide 2.5 % lotion APPLY TO WET SKIN BY TOPICAL ROUTE ONCE WEEKLY WORK INTO A FULL LATHER, LEAVE ON SKIN FOR 2-3 MINUTES, RINSE THOROUGHL Y, AND THEN PAT DRY 11/20 completed Not Available Not Available Not Available Bevespi Aerosphere 9 mcg-4.8 mcg HFA aerosol inhaler Inhale 2 puffs twice a day by inhalatio n route as directed for 30 days. 06/19 completed Not Available Not Available Not Available ID NOW COVID-19 Test Kit TEST DIRECTED TODAY 07/27 completed Not Available Not Available Not Available Vitals Date Recorded Body height Body mass index (BMI) Body weight Body temperature Heart rate Oxygen saturation Oxygen saturation in Arterial blood by Pulse oximetry Systolic And Diastolic Provider Name and Address Organization Details Last Updated DateTime 3 190.5 cm 26.4 kg/m2 14934.9 9 g 97.2 [degF] 64 /min 97 % 97 % 110/58 mm[Hg] Elsi Devries [facility] [email or web address] [facility] 3 10:05:31 Date Recorded Respiratory rate Provider Name a nd Address Organization Details Last Updated DateTime 06/26/2023 16 /min Lisa Cortez [facility] 06/26/2023 11:35:00 Date Recorded Body height Heart rate Oxygen saturation Oxygen saturation in Arterial blood by Pulse oximetry Provider Name and Address Organization Details Last Updated DateTime 06/26/2023 187.96 cm 72 /min 99 % 99 % Linda Domínguez MA [facility] 06/26/2023 11:42:34 Date Recorded Body height Body mass index (BMI) Body weight Body temperature Provider Name and Address Organization Details Last Updated DateTime 12/17/2023 182.88 cm 26.6 kg/m2 75174.82 g 98.5 [degF] BANDAR Rogers [facility] 12/17/2023 14:45:01 Date Recorded Body height Body mass index (BMI) Body weight Body temperature Provider Name and Address Organization Details Last Updated DateTime 01/08/2024 182.88 cm 26.7 kg/m2 95555.7 g 97.8 [degF] Anastasai Young RN [facility] 01/08/2024 12:14:51 Date Recorded Body mass index (BMI) Body height Oxygen saturation Oxygen saturation in Arterial blood by Pulse oximetry Heart rate Respiratory rate Body temperature Body weight Systolic And Diastolic Provider Name and Address Organization Details Last Updated DateTime 2 23.7 kg/m2 190.5 cm 98 % 98 % 86 /min 16 /min 98.6 [degF] 60131.5 5 g 120/80 mm[Hg] Not Available [facility] 00:48:54 Social History Question Answer Notes LastModified by Organization Details LastModified Time Tobacco Smoking Status Former Smoker Not Available [facility] 06/12/2022 00:45:10 Do You Have An Advance Directive? No MIGRATION.300 [id number] Information not available 06/12/2022 Do You Wear A Helmet When Biking? No MIGRATION.300026 Information not available 06/12/2022 What Is Your Level Of Caffeine Consumption? Occasional MIGRATION.300026 Information not available 06/12/2022 In The 14 Days Before Symptom Onset, Have You Had Close Contact With A Laboratory-confi rmed COVID-19 While That Case Was Ill? No MIGRATION.0301 [id number] Information not available 06/12/2022 In The 14 Days Before Symptom Onset, Have You Had Close Contact With A Person Who Is Under Investigation For COVID-19 While That Person Was Ill? No MIGRATION.0301 [id number] Information not available 06/12/2022 What Type Of Diet Are You Following? REGULAR MIGRATION.030 [id number] Information not available 06/12/2022 Which Illicit Or Recreational Drugs Have You Used? Marijuana MIGRATION.030 [id number] Information not available 06/12/2022 What Is The Highest Grade Or Level Of School You Have Completed Or The Highest Degree You Have Received? [id number] MIGRATION.030 082062 Information not available 06/12/2022 Have There Been Any Changes To Your Family Or Social Situation? Yes Family Issues MIGRATION.030 468191 Information not available 06/12/2022 What Is The Fluoride Status Of Your Home? Unknown MIGRATION.030 405266 Information not available 06/12/2022 When Did You Quit Smoking? 1-5yearssincelastci garette MIGRATION.030 169388 Information not available 06/12/2022 Are There Any Guns Present In Your Home? No MIGRATION.030 772710 Information not available 06/12/2022 Do You Use Insect Repellent Routinely? Yes MIGRATION.0301 [id number] Information not available 06/12/2022 Where Do You Live? SingleLevelHouse MIGRATION.030 390288 Information not available 06/12/2022 Do You Have A Medical Power Of Change Control Coordinator? No MIGRATION.0301 050004 Information not available 06/12/2022 Do You Have Any Pets? Yes Two Dogs In The Home MIGRATION.0301 [id number] Information not available 06/12/2022 What Is Your Relationship Status? MIGRATION.0301 [id number] Information not available 06/12/2022 Do You Use Your Seat Belt Or Car Seat Routinely? Yes MIGRATION.0301 001147 Information not available 06/12/2022 Do You Have Smoke And Carbon Monoxide Detectors In Your Home? Yes MIGRATION.0301 748210 Information not available 06/12/2022 At What Age Did You Start Smoking Tobacco? 10 MIGRATION.0301 212648 Information not available 06/12/2022 Are You Passively Exposed To Smoke? No MIGRATION.0301 688027 Information not available 06/12/2022 Are There Any Smokers In Your House? No MIGRATION.0301 949249 Information not available 06/12/2022 Do You Participate In Social Media? Yes MIGRATION.0301 850537 Information not available 06/12/2022 Do You Use Sunscreen Routinely? Yes MIGRATION.0301 371771 Information not available 06/12/2022 Has Tobacco Cessation Counseling Been Provided? No MIGRATION.0301 984222 Information not available 06/12/2022 How Many Years Have You Smoked Tobacco? 10 MIGRATION.0301 [id number] Information not available 06/12/2022 Have You Recently Traveled Abroad? No MIGRATION.0301 352434 Information not available 06/12/2022 Have You Used IV Drugs? No MIGRATION.0301 213701 Information not available 06/12/2022 Are You Currently In School? No MIGRATION.0301 963777 Information not available 06/12/2022 Do You Have Any Dietary Restrictions? No MIGRATION.0301 821141 Information not available 06/12/2022 Sex: Unknown Functional Status Question Answer Note LastModified by [employer] ion Details LastModified Time Do you use any illicit or recreational drugs? Yes MIGRATION.[id number] 026 Information not available 06/12/2022 Do you or have you ever used any other forms of tobacco or nicotine? No MIGRATION.8023975 026 Information not available 06/12/2022 What is your level of alcohol consumption? 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 Moderate MIGRATION.[id number] 026 Information not available 06/12/2022 Mental Status Question Answer Note LastModified by [employer] ion Details LastModified Time Do you feel stressed (tense, restless, nervous, or anxious, or unable to sleep at night)? [id number] MIGRATION.[id number] 6 Information not available 06/12/2022 Family History Nothing Reported. Medical History Condition Response KIDNEY STONES N CARPAL TUNNEL SYNDROME N MRSA N HISTORY OF DRUG ABUSE N RADIATION / CHEMOTHERAPY N COPD Y SPORTS INJURY N BLOOD DISEASES N SURGERY N MUMPS N SHINGLES N BOWEL PROBLEMS N FAILED BACK SYNDROME N STROKE/TIA N THYROID DISEASE N LYMPHEDEMA N ULCERS N OTHER MODALITIES N CERVICALGIA N TB SKIN TEST N MYOCARDIAL INFARCTION N PARAPELGIA N OBESITY N URINARY/BLADDER/KIDNEY PROBLEMS N Increased Urination N INPATIENT PSYCH CARE N CORONARY ARTERY DISEASE (CAD) N MENIERE'S DISEASE N Do you have Advance directive? N CAROTID STENOSIS N ADDICTION CONCERNS N Impotence N ENDOMETRIOSIS N PARATHYROID DISEASE N PERIPHERAL VASCULAR DISEASE N MUSCLE,JOINT OR BONE PROBLEMS N DVT N STOMACH ULCERS N GASTROINTESTINAL BLEEDING N BLOOD CLOTS N PAST HISTORY OF VEHICULAR ACCIDENT N Difficulty Urinating N ASTHMA N Abdominal Pain N USE OF NSAIDS N ARTERIAL INSUFFICIENCY N GI PROBLEMS N CHF N Low Testosterone N VISION/EYE PROBLEMS N MALE HYPOGONADISM N PERSONALITY DISORDER N ELBOW PAIN N TOURETTE'S N ANXIETY DISORDER N CHRONIC EAR INFECTIONS N BIPOLAR DISORDER N CONDUCT DISORDER N OSTEOARTHRITIS N TUBERCULOSIS N DIVERTICULITIS N SLEEP APNEA N ALLERGIES/HAYFEVER N PROSTATE N HEART ARRHYTHMIA N INSOMNIA N PAST MEDICATION HISTORY N EYE PROBLEMS N Have you ever been hospitalized N SCHIZOAFFECTIVE N EDEMA N HYPOTHYROIDISM N CONSTIPATION N CAROTID BLOCKAGE N MOOD DISORDER N BACK / NECK PROBLEMS N MIGRAINES N BREAST PROBLEMS N POLYCYSTIC OVARIES N FIBROMYALGIA N OSTEOPOROSIS N Do you have a healthcare POA? N PERIPHERAL NEUROPATHY N APPENDICITIS N VON WILLIBRAND'S DISEASE N SEASONAL ALLERGIES N HEARTBURN / REFLUX N GI N PLEURISY N AFIB N ADD/ADHD N Bronchoscopy N AUTISM SPECTRUM DISORDER (ASD) N SLEEP DISORDER N RETINOPATHY N HEADACHES/MIGRAINES N SLEEP STUDY N VASCULAR DISEASE N HEART MURMUR N FEMALE REPRODUCTIVE ISSUES N Blood Disorder N HEART DISEASE/HEART PROBLEMS N MULTIPLE SCLEROSIS N DEVELOPMENTAL OR BEHAVIORAL DISORDERS N CLAUDICATION N PULMONARY FUNCTION TEST N Gall Stones N ATRIAL FIBRILLATION N PULMONARY EMBOLISM N AUTOIMMUNE DISEASE N MEMORY IMPAIRMENT N NERVE DISEASE N CYSTITIS N BLINDNESS N RHEUMATIC FEVER N BLADDER PROBLEMS N Enlarged Prostate N OTHER # 1 N POLIO N LUNG DISEASE/DISORDER N Other # 2 N ANKLE PAIN N EAR OR HEARING PROBLEMS N PAST SPINAL SURGERY N SCHIZOPHRENIA N SHOULDER PAIN N FEMALE PROBLEMS / INFECTIONS N DEPRESSION (INCLUDING POST ) N RENAL INSUFFICIENCY N BENIGN PROSTATIC HYPERPLASIA N MEASLES N HYPOTENSION N GERD/NAUSEA N EXCESSIVE PERSPIRATION N ANEURYSM N USE OF BLOOD THINNERS N SKIN PROBLEMS N EMPHYSEMA N SHORTNESS OF BREATH N GASTROINTESTINAL DISORDER N PERIPHERAL ARTERY DISEASE N PTSD N Do you have a living will? N CATARACTS N CONCUSSION OR SPINAL TRAUMA N ERECTILE DYSFUNCTION N VARICOSITIES N NEUROPATHY N INFERTILITY N AIDS/HIV N FRACTURES N CHEMOTHERAPY / RADIATION N LIVER DISEASE N HYPERTENSION N Deficiency N Metal allergy N BLOOD TRANSFUSION N ANEMIA/BLOOD DISORDER N BRONCHITIS N GLAUCOMA N FOOT PROBLEM N HEART VALVE DISORDERS N CHICKENPOX N SOFT TISSUE INJURY N BACK INJECTIONS N INFECTIOUS DISEASE N ESRD N PAST INTERVENTIONAL PAIN MANAGEMENT HIST ORY N RHEUMATOID ARTHRITIS N HIGH CHOLESTEROL / HYPERLIPIDEMIA N HYPERTHYROIDISM N UTI N PVD N EATING DISORDER N NEUROLOGICAL PROBLEMS N CHRONIC PAIN SYNDROME N HAVE YOU BEEN HOSPITALIZED OR SEEN IN [facility] IN THE PAST YEAR ? N ATHEROSCLEROSIS N BURSITIS N HERNIATED DISC N DIALYSIS N ECZEMA N HISTORY WITH COMPLICATIONS WITH ANESTHES IA ? N PSYCHOSIS N ARTHRITIS N RESPIRATORY PROBLEMS N PAST HISTORY OF FALL N NO SIGNIFICANT PAST MEDICAL HISTORY N DIABETES, TYPE N BAD TEETH N PARKINSON N ENT Y incontinence N POST LAMINECTOMY SYNDROME N HEPATITIS / LIVER DISEASE N PULMONARY DISEASE N GOUT N ALZHEIMER'S DISEASE N PAIN N FATIGUE N Brain Problems N HERPES N DEMENTIA N SEIZURES/EPILEPSY N PACEMAKER N DIZZINESS N HEAD TRAUMA OR INJURY N KIDNEY DISEASE N SCARLET FEVER N MENTAL DISORDER/ILLNESS N NEUROPSYCHOLOGICAL N CARDIAC ARRHYTHMIA N CANCER: SPECIFY N PNEUMONIA N DEAF/HEARING IMPAIRED N Past Encounters Encounter ID Performer Location Encounter Start Date Encounter Closed Date Diagnosis/Indication Diagnosis SNOMED-CT Code Diagnosis ICD10 Code Diagnosis Note [id number] [facility] [place] [address] [place] [address] 02/08/2021 00:00:00 02/08/2021 13:32:35 [id number] Briana Miller MD [facility] [address] [address] [place] [address] 05/03/2021 00:00:00 05/03/2021 20:40:17 [id number] S_Histor ic_Gateway [facility] [place] [address] [place] [address] 05/07/2021 00:00:00 05/07/2021 13:55:18 [id number] Briana Miller MD [facility] [address] [place] [address] 05/15/2021 00:00:00 05/15/2021 16:15:51 [id number] Matias carson MD [facility] General Surgery [address] [address] 05/24/2021 00:00:00 05/24/2021 12:30:00 [id number] Matias carson MD [facility] General Surgery [address] [address] 06/05/2021 00:00:00 06/05/2021 13:49:13 [id number] Briana Miller MD [facility] Primary Care [facility] [address] [place] [address] 06/06/2021 00:00:00 06/06/2021 12:11:25 [id number] S_Histor ic_Gateway [facility] [place] [address] [place] [address] 06/15/2021 00:00:00 06/15/2021 11:06:[id number] MD [facility] ENT [place] [address] [place] [address] 06/19/2021 00:00:00 06/19/2021 16:33:02 [id number] Jo Ann Wynn MINE ENVIRONMENTAL ENGINEER- [facility] [place] [address] [place] [address] 07/27/2021 00:00:00 07/27/2021 12:11:42 [id number] GRACIA Ellison [facility] Primary Care [place] [address] [place] [address] 08/07/2021 00:00:00 08/08/2021 10:55:37 [id number] SDestineyHistor ic_Gateway [facility] [place] [facility] [place] [address] [place] [address] 08/24/2021 00:00:00 08/24/2021 11:30:37 [id number] GRACIA Ellison [facility] Primary [facility] [place] [address] [place] [address] 08/30/2021 00:00:00 08/30/2021 19:53:57 [id number] GRACIA Ellison S_[facility] Primary Care [place] [address] [facility] [address] [place] [address] 09/13/2021 00:00:00 09/13/2021 17:40:34 [id number] GRACIA Ellison S_GMG Primary Care [place] [address] [facility] [address] [place] [address] 11/07/2021 00:00:00 11/07/2021 13:53:23 [id number] HEATHER Spaulding S_[facility] [place] [facility] [place] [address] [place] [address] 11/20/2021 00:00:00 11/20/2021 13:55:40 [id number] GRACIA Ellison S_[facility]G Primary Care [place] [address] [facility] [address] [place] [address] 12/27/2021 00:00:00 12/27/2021 18:02:41 [id number] HEATHER Spaulding S_[facility] [place] [facility] [place] [address] [place] [address] 01/29/2022 00:00:00 01/29/2022 23:09:29 [id number] Briana Miller MD S_[facility]G Primary Care [place] [address] [facility] [address] [place] [address] 02/01/2022 00:00:00 02/01/2022 13:53:55 [id number] Matias carson MD S_[facility]G General Surgery [address] [address] 02/19/2022 00:00:00 02/19/2022 15:09:37 [id number] Matias carson MD S_[facility] General Surgery [address] [address] 03/26/2022 00:00:00 03/26/2022 15:53:47 [id number] Jo Ann Tianna, MINE ENVIRONMENTAL ENGINEER-BC [facility] [place] [facility] [place] [address] [place] [address] 06/19/2022 09:59:56 06/20/2022 08:53:35 Solitary nodule of lung 922243931 R91.1 Unchanged to LLL per CT chest 06/11/22Re peat imaging in 6 months Obstructiv e sleep apnea syndrome 56539482 G47.33 Study 03/25/19 with AHI 43.7 Set up with APAP 05/25/18 Download with 63% use greater than 4 hours and AHI 4.5 He is on APAP 10-17 cm P4TLkcwji pressure 11.4He has good use and benefitOSA is well correctedE ncouraged 100% compliance with all sleepFollo w with PCM for labsAdvise d good sleep habits and patterns: He is aware of reportable signs and symptoms.I nspire evaluation scheduled Download in 6 months, PRN for concerns Cough 33255494 R05.9 ChronicRes tart inhalersMa [facility] cessation Dyspnea on exertion 6084 5006 R06.09 Increase activityQu antiferon GOLD negativeBN P and eosinophil s normalRAST , IGE and IGGs normal Gastroesop hageal reflux disease without esophagitis 817535875 K21.9 Controlled currently not on daily medication Discussed reportable signs and symptomsDi scussed dietary modificati onsAvoid tight clothing. No eating 2-3 hours prior to bedAvoid offending foods Elevate head of bed while sleeping Mild chron ic obstructive pulmonary disease 226293906 J44.9 PFT completed 02/2021 with mild obstructio n and hyperinfla tion/air trappingRe start Anoro ElliptaIns tructed on technique today Alpha1 MM normal We have discussed reportable signs and symptoms.N ebulizer for PRN use RTC in 4-6 months, PRN for concerns Pulmonary emphysema [address] chestMarij uana cessation Marijuana user 872626035 F12.90 Educated on cessation Ex-smoker 4826133 Z87.89 1 Quit 2016, started at age 8 [id number] Matias carson MD S_GM General Surgery [address] [place] [address] 06/26/2023 11:31:10 06/26/2023 16:42:28 Epigastric hernia 648360840 K43.[id number] MD [facility] [place] [address] [place] [address] 12/17/2023 14:21:28 12/17/2023 14:59:29 Bilateral chronic serous otitis 738213350 H65.[id number] MD [facility] [place] [address] [place] [address] 01/08/2024 12:05:43 01/08/2024 14:46:47 Dysfunction of bilateral eustachian tubes 1976025279 250957 H69.93 Health Concerns Section Related Observation LastModified by Organization Detai ls LastModified Time None Recorded Concern Status LastModified by Organization Details LastModified Time None Recorded Advance Directives Directive N: Payers Insurance Date Sequence Insurance Name Policy Number Policy Miles Covered Member ID Miles Member ID Guarantor Name 01/07/2024 1 [employer] [facility] [facility] [place] [facility] ON OR AFTER 03/14/2020 (MEDICAID REPLACEMENT - HMO) Ken Godinez [id number] Ken Godinez
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
--- OUTSIDE RECORDS SUMMARY | 2024-11-09 01:04 | XMS_ITS | Encounter Summary ---
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
--- OUTSIDE RECORDS SUMMARY | 2024-11-09 01:04 | XMS_ITS | Clinical Summary ---
Author Organization [facility] Address [address] [place] [address] Care Team Providers Care Logistician Name Role Phone Vimal Tyson NP Primary Care Provider [phone] Allergies No known active allergies Medications aspirin [...] 1 capsule (40 mg total) by mouth statement processor before breakfast 30 capsule 11 12/22/19 24 [...] (01/11/2022): Added automatically from request for surgery [id number] Cough 10/02/2021 Simple renal cyst 08/30/2021 Pain [...] (07/23/2021): Added automatically from request for surgery [id number] Encounters Date Type Department Care Team Description 11/08/2024 4:28 PM CDT - 11/08/2024 6:25 PM CDT Emergency [facility] Emergency Department [address] [place] [address] Discharge Disposition: Left without being seen from [...] on file 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 Gender Identity Not on file Sexual Orientation [...] this topic Medical Devices Implanted Type Area Blood Donor Unit Assistant Device Identifier Shelf Expiration Date Model / Serial / Lot [employer]Rich[employer]/Or tho 2.4mm 3.8mm 17mm Self Retaining Screwdriver Self Tap Flat Head [id number] - [id number] Implanted:Qty: 2 on 12/30/2022 by Miriam Porter MD at [facility] [employer]/Ort ho [id number] / / [employer]Rich[employer]/Or tho Evos Mini 2.4mm 22mm Self Tap Cortex T7 Screw Bone Sterile [id number] - [id number] Implanted:Qty: 1 on 12/30/2022 by Miriam Porter MD at [facility] [employer]Rich[employer]/Ort ho [id number] / / [employer]/Or tho Evos Mini 2.4mm 26mm Self Tap Cortex T7 Screw Bone Sterile [id number] - [id number] Implanted:Qty: 1 on 12/30/2022 by Miriam Porter MD at [facility] [employer]/Ort ho [id number] / / [employer]/Or tho Evos Mini 2.7mm 4.5mm 17mm Self Tap Cortex T8 Screw Bone [id number] - [id number] Implanted:Qty: 1 on 12/30/2022 by Miriam Porter MD at [facility] [employer]Rich[employer]/Ort ho [id number] / / [employer]/Or tho Evos Mini 121mm 20 Hole Strenght Low Profile Variable Angle Small [id number] - [id number] Implanted:Qty: 1 on 12/30/2022 by Miriam Porter MD at [facility] [employer]/Ort ho [id number] / / [employer]Rich[employer]/Or tho Evos Mini 140mm 20 Hole Flex Low Profile Variable Angle Small [id number] - [id number] Implanted:Qty: 1 on 12/30/2022 by Miriam Porter MD at [facility] [employer]Rich[employer]/Ort ho [id number] / / [employer]Rich[employer]/Or tho 2.7mm 4.5mm 14mm Self Retaining Screwdriver Self Tap Flat Head [id number] - [id number] Implanted:Qty: 1 on 12/30/2022 by Miriam Porter MD at [facility] [employer]Rich[employer]/Ort ho [id number] / / [employer]Rich[employer]/Or tho 2.7mm 4.5mm 15mm Self Retaining Screwdriver Self Tap Flat Head [id number] - [id number] Implanted:Qty: 1 on 12/30/2022 by Miriam Porter MD at [facility] [employer]Rich[employer]/Ort ho [id number] / / [employer]Rich[employer]/Or tho 2.7mm 4.5mm 20mm Self Retaining Screwdriver Self Tap Flat Head [id number] - [id number] Implanted:Qty: 1 on 12/30/2022 by Miriam Porter MD at [facility] [employer]/Richco/Ort ho [id number] / / [employer]Rich[employer]/Or tho 2.7mm 4.5mm 28mm Self Tap Cortex T8 2mm Screw Bone Evos [id number] - [id number] Implanted:Qty: 1 on 12/30/2022 by Miriam Porter MD at [facility] [employer]Rich[employer]/Ort ho [id number] / / [employer]Rich[employer]/Or tho Evos 2.4mm 16mm Self Tap Self Retaining Drive Small Bone Long [id number] - [id number] Implanted:Qty: 1 on 12/30/2022 by Miriam Porter MD at [facility] [employer]Rich[employer]/Ort ho [id number] / / [employer]Rich[employer]/Or tho Evos 2mm 3mm 18mm Self Tap Cortex T6 Screw Bone Mini Plate System [id number] - [id number] Implanted:Qty: 1 on 12/30/2022 by Miriam oPrter MD at [facility] [employer]Rich[employer]/Ort [id number] / / [employer]Rich[employer]/Or tho Evos Mini 2.4mm 3.8mm 26mm Lock Long Bone Small Bone T7 Screw [id number] - [id number] Implanted:Qty: 1 on 12/30/2022 by Miriam Porter MD at [facility] [employer]Rich[employer]/Ort [id number] / / Explanted Type Area Blood Donor Unit Assistant Device Identifier Shelf Expiration Date Model / Serial / Lot [employer]hew/Richco/O rtho Evos 2.7mm 4.5mm 16mm Self Tap Cortex T8 Screw Bone Mini Plate [id number] - [id number] Explanted:Qty: 2 on 12/30/2022 by Miriam Porter MD at [facility] [employer]Rich[employer]/Ort [id number] / / Procedures Procedure Name Priority Date/Time Associated Diagnosis Comments HEPATITIS C ANTIBODY STAT 07/23/2021 5:27 PM CDT from Last 3 Months or Most Recently Relevant to Health Maintenance Results * Hepatitis C antibody (07/23/2021 5:27 PM CDT) Hep C Ab Nonreactive Nonreactive [facility] Comment:Antibodies to HCV no t detected. Does NOT exclude the possibility of recent exposure to HCV. Blood 07/23/2021 5:27 PM CDT 07/23/2021 6:19 PM CDT us Corky Chan MD LAB MICROBIOLOGY - GENERAL ORD ERABLES Edited Result - Final [facility] [place] [address] from Last 3 Months or Most Recently Relevant to Health Maintenance Insurance [facility] [facility] Advance Directives For more information, please contact: [phone] * Full Code (Latest Code Status on File) Date Activated Date Inactivated Comments 07/23/2021 4:55 PM 07/24/2021 11:01 PM Care Teams Logistician Relationship Specialty Start Date End Date Vimal Tyson NP PCP - General Internal Medicine 06/14/21
--- OUTSIDE RECORDS SUMMARY | 2024-11-09 01:04 | XMS_ITS | Continuity of Care Document ---
Author Organization [facility] Address [address] [place] [address] Phone Care Team Providers Care Field Assistant Name Role Phone Vitaly DE JESUS MD, [...] Providers Copied on Encounter Office/outpat ient visit,est, [facility], [address] [place] [address], [id number], tel:[phone] [facility] [employer] r knee (chief complaint) Pain in right knee Vitaly Rice. [address] [place] [address], [place], [place], [id number], [place]. tel:[phone] Office/outpat ient visit,est, [facility], [address] [place] [address], [id number], [place] tel:[phone] [facility] [employer] r knee (chief complaint) Pain in right thighPain in right knee Vitaly Rice. [address] [facility] [address], [address], [place], [place], [id number], [place]. tel:[phone] Office/outpat ient visit,est, [facility], [address] [facility] [address], [place], [place], [id number], [place] tel:[phone] [facility] [employer] [facility] r leg (chief complaint) Pain in right thigh Vitaly Rice. [address] [facility], [address], [place], [place], [id number], [place]. tel:[phone] [facility] [employer] [facility], [address] [facility] [address], [place], [place], [id number], [place] tel:[phone] [facility] Pain in right thigh [facility]. [address] [facility], [address], [place], [place], [id number], [place]. tel:[phone] Referring Provider: Po Mcgee MD P, [address] [facility], [place], [address] . tel:[phone] Office consultation, moderate-high [facility] [employer] [facility], [address], [place], [place], [id number], [place] tel:[phone] [facility] [employer] [facility] Rightknee And Thigh (chief complaint) Pain in right kneePain in right thigh Vitaly Rice. [address] [facility], [address], [place], [place], [id number], [place]. tel:[phone] Family History Family Member Type Diagnosis Age At Onset No Information Payers Payer name Insurance type Covered alliance party ID Giovanni trujillo(lenore Santamaria [facility] [id number] Social History Type Description Quantity Date Captured [...]
--- OUTSIDE RECORDS SUMMARY | 2024-11-09 01:04 | XMS_ITS | Clinical Summary ---
Author Organization [facility] Address [address] [place] [address] Care Team Providers Care College Advisor Name Role Phone Unavailable Primary Care Provider Unavailabl e Source Comments [facility],non-owned Affiliates and Associated Physician Practices is amultiple site organization consisting of ambulatory clinics and hospital sitesin [place], [place], [place] and [place]. This disclosure is being madepursuant to the Care Everywhere program and may not contain all information available regarding this patient. 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 Gender Identity Not on file Sexual Orientation Not on file Last Filed Vital Signs Vital Sign Reading Time Taken Comments Blood Pressure 124/68 03/24/2017 12:15 AM GOVERNMENT AFFAIRS RESEARCHER Pulse 60 03/24/2017 12:01 AM GOVERNMENT AFFAIRS RESEARCHER Temperature 36.8 C (98.3 F) 03/23/2017 8:20 PM GOVERNMENT AFFAIRS RESEARCHER Respiratory Rate 15 03/24/2017 12:15 AM GOVERNMENT AFFAIRS RESEARCHER Oxygen Saturation 95% 03/24/2017 12:15 AM GOVERNMENT AFFAIRS RESEARCHER Inhaled Oxygen Concentration - - Weight 74.8 kg (165 lb) 03/23/2017 8:19 PM GOVERNMENT AFFAIRS RESEARCHER Height 190.5 cm (6' 3) 03/23/2017 8:19 PM GOVERNMENT AFFAIRS RESEARCHER Body Mass Index 20.62 03/23/2017 8:19 PM GOVERNMENT AFFAIRS RESEARCHER Plan of Treatment Health Maintenance Due Date [...]
--- OUTSIDE RECORDS SUMMARY | 2024-11-09 01:04 | XMS_ITS | Referral Summary ---
Author Organization [facility] Address [address] [place] [address] Care Team Providers Care In Service Coordinator Name Role Phone Vimal Tyson NP Primary Care Provider [phone] Encounters Date Type Department Care Team Description 11/08/2024 4:28 PM CDT - 11/08/2024 6:25 PM CDT Emergency [facility] Emergency Department [address] [place] [address] Discharge Disposition: Left without being seen from [...] 1 capsule (40 mg total) by mouth playground worker before breakfast 30 capsule 11 12/22/19 24 [...] (01/11/2022): Added automatically from request for surgery [id number] Cough 10/02/2021 Simple renal cyst 08/30/2021 Pain [...] (07/23/2021): Added automatically from request for surgery [id number] Immunizations Immunization Administration Dates Next Due Influenza, [...] on file 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 Gender Identity Not on file Sexual Orientation [...] on file Medical Devices Implanted Type Area Cad Draftsman Device Identifier Shelf Expiration Date Model / Serial / Lot [employer] Nephew/Richco/Or tho 2.4mm 3.8mm 17mm Self Retaining Screwdriver Self Tap Flat Head [id number] - [id number] Implanted:Qty: 2 on 12/30/2022 by Miriam Porter MD at [facility] [employer]Rich[employer]/Ort [id number] / / [employer]Richco/Or tho Evos Mini 2.4mm 22mm Self Tap Cortex T7 Screw Bone Sterile [id number] - [id number] Implanted:Qty: 1 on 12/30/2022 by Miriam Porter MD at [facility] [employer]/Rich[employer]/Ort ho [id number] / / [employer]hew/Richco/Or tho Evos Mini 2.4mm 26mm Self Tap Cortex T7 Screw Bone Sterile [id number] - [id number] Implanted:Qty: 1 on 12/30/2022 by Miriam Porter MD at [facility] [employer]/Rich[employer]/Ort ho [id number] / / [employer]/Rich[employer]/Or tho Evos Mini 2.7mm 4.5mm 17mm Self Tap Cortex T8 Screw Bone [id number] - [id number] Implanted:Qty: 1 on 12/30/2022 by Miriam Porter MD at [facility] [employer]/Rich[employer]/Ort ho [id number] / / [employer]/Rich[employer]/Or tho Evos Mini 121mm 20 Hole Strenght Low Profile Variable Angle Small [id number] - [id number] Implanted:Qty: 1 on 12/30/2022 by Miriam Porter MD at [facility] [employer]/Ort ho [id number] / / [employer]hew[employer]Rich[employer]/Or tho Evos Mini 140mm 20 Hole Flex Low Profile Variable Angle Small [id number] - [id number] Implanted:Qty: 1 on 12/30/2022 by Miriam Porter MD at [facility] [employer]/Rich[employer]/Ort ho [id number] / / [employer]Rich[employer]/Or tho 2.7mm 4.5mm 14mm Self Retaining Screwdriver Self Tap Flat Head [id number] - [id number] Implanted:Qty: 1 on 12/30/2022 by Miriam Porter MD at [facility] [employer]/Ort ho [id number] / / [employer]hew/Rich[employer]/Or tho 2.7mm 4.5mm 15mm Self Retaining Screwdriver Self Tap Flat Head [id number] - [id number] Implanted:Qty: 1 on 12/30/2022 by Miriam Porter MD at [facility] Read [employer] Nephew/Richco/Ort ho [id number] / / Read [employer]hew/Richco/Or tho 2.7mm 4.5mm 20mm Self Retaining Screwdriver Self Tap Flat Head [id number] - [id number] Implanted:Qty: 1 on 12/30/2022 by Miriam Porter MD at [facility] Read [employer]/Richco/Ort ho [id number] / / [employer]hew/Richco/Or tho 2.7mm 4.5mm 28mm Self Tap Cortex T8 2mm Screw Bone Evos [id number] - [id number] Implanted:Qty: 1 on 12/30/2022 by Miriam Porter MD at [facility] [employer]/Richco/Ort ho [id number] / / [employer]hew/Richco/Or tho Evos 2.4mm 16mm Self Tap Self Retaining Drive Small Bone Long [id number] - [id number] Implanted:Qty: 1 on 12/30/2022 by Miriam Porter MD at [facility] Read [employer]/Richco/Ort ho [id number] / / Read [employer]hew/Richco/Or tho Evos 2mm 3mm 18mm Self Tap Cortex T6 Screw Bone Mini Plate System [id number] - [id number] Implanted:Qty: 1 on 12/30/2022 by Miriam Porter MD at [facility] Read [employer]/Rich[employer]/Ort ho [id number] / / Read [employer]hew/Richco/Or tho Evos Mini 2.4mm 3.8mm 26mm Lock Long Bone Small Bone T7 Screw [id number] - [id number] Implanted:Qty: 1 on 12/30/2022 by Miriam Porter MD at [facility] [employer]Rich[employer]/Ort ho [id number] / / Explanted Type Area Cad Draftsman Device Identifier Shelf Expiration Date Model / Serial / Lot Read [employer] Nephew/Richco/O rtho Evos 2.7mm 4.5mm 16mm Self Tap Cortex T8 Screw Bone Mini Plate [id number] - [id number] Explanted:Qty: 2 on 12/30/2022 by Miriam Porter MD at [facility] Read [employer] Nephew/Alfredo/Boubacar [id number] / / Procedures Procedure Name Priority Date/Time Associated Diagnosis Comments HEPATITIS C ANTIBODY STAT 07/23/2021 5:27 PM CDT from Last 3 Months or Most Recently Relevant to Health Maintenance Results * Hepatitis C antibody (07/23/2021 5:27 PM CDT) Hep C Ab Nonreactive Nonreactive [facility] Comment:Antibodies to HCV no t detected. Does NOT exclude the possibility of recent exposure to HCV. Blood 07/23/2021 5:27 PM CDT 07/23/2021 6:19 PM CDT us Corky Chan MD LAB MICROBIOLOGY - GENERAL ORD ERABLES Edited Result - Final [facility] [place] [address] from Last 3 Months or Most Recently Relevant to Health Maintenance Insurance [facility] AET BETTER [facility] AETNA BETTER [facility] Advance Directives For more information, please contact: [phone] * Full Code (Latest Code Status on File) Date Activated Date Inactivated Comments 07/23/2021 4:55 PM 07/24/2021 11:01 PM Care Teams In Service Coordinator Relationship Specialty Start Date End Date Vimal Tyson NP PCP - General Internal Medicine 06/14/21
--- OUTSIDE RECORDS SUMMARY | 2024-11-09 01:04 | XMS_ITS | Encounter Summary ---
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
--- OUTSIDE RECORDS SUMMARY | 2024-11-09 01:04 | XMS_ITS | Clinical Summary ---
Author Organization [facility] Address [facility] [place] [address] Care Team Providers Care Information Systems Analyst Name Role Phone Unavailable Primary Care Provider [...]
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
[2024-11-09 01:26] LABS: Hematocrit 36.2 % (42.0-52.0); Hemoglobin 11.7 g/dL (14.0-18.0); Immature Granulocyte Percent A 0.4 % (0-0.5); Lymphocytes Absolute Auto 0.93 K/mm3 (0.9-3.2); Mean Corpuscular HGB Conc 32.3 g/dl (32-36); Mean Corpuscular Hemoglobin 29.0 pg (26-34); Mean Corpuscular Volume 89.6 fl (80-100); Nucleated Red Blood Cells Absolute Auto 0.000 K/mm3 (0.0-0.012); Nucleated Red Blood Cells Perc 0.0 % (0.0-0.2); Platelet Count Result 287 k/mm3 (150-375); Red Blood Count 4.04 M/mm3 (4.6-6.20); White Blood Count 10.8 K/mm3 (4.5-10.0)
[2024-11-09 01:37] LABS: INR 1.0; Prothrombin Time 13.3 Seconds (11.1-14.7)
[2024-11-09 01:38] LABS: Partial Thromboplastin Time 35.5 Seconds (22.3-36.8)
[2024-11-09 01:41] LABS: Alanine Aminotransferase 23 U/L (6-50); Albumin Level 3.2 g/dL (3.5-5.1); Alkaline Phosphatase 78 U/L (38-126); Anion Gap 7 mmol/L (4-12); Aspartate Amino Transferase 26 U/L (17-59); Bilirubin,Total 0.5 mg/dL (0.2-1.3); Blood Urea Nitrogen 10 mg/dL (9-20); Calcium 8.7 mg/dL (8.4-10.2); Carbon Dioxide 27 mmol/L (22-30); Chloride 97 mmol/L (98-107); Estimated CRCL calculation 110 ml/min; Estimated Glomerular Filt Rate > 60; Glucose 120 mg/dL (65-110); Potassium 3.8 mmol/L (3.4-5.0); Sodium 131 mmol/L (137-145); Total Protein 5.8 g/dL (6.3-8.2)
[2024-11-09 01:53] LABS: CRP 11.3 mg/dL (<1.0)
[2024-11-09] MEDS: ENOXAPARIN 80 MG/0.8 ML SYRINGE SUB-Q ×2 (03:13→21:12)
[2024-11-09] MEDS: VANCOMYCIN 2,000 MG/NS 500 ML 2,000 MG/500 ML BAG 250 MG IVPB (03:14)
[2024-11-09] MEDS: SODIUM CHLORIDE 0.9% IV 1,000 ML 999 ML IV CONT (03:23)
--- NOTE | 2024-11-09 04:50 | ADMGEN ---
This patient, Ken Godinez, was admitted to [facility] Surg Room 321-01. Patient/family oriented to hospital policies and general routines including ID bracelet, bed and alarms, visiting hours, pain management, procedures, bathroom and other care routines, personal items, smoking policy, room service/diet, and visiting hours. Information on how to activate the Rapid Response Team has been discussed. Patient/Family are encouraged to report perceived risks to care and to ask questions if they do not understand what they are told or what they should do.
[2024-11-09 07:14] LABS: Cannabinoid Screen Urine Positive (Negative)
[2024-11-09] MEDS: VANCOMYCIN 1,500 MG/NS 500 ML 1,500 MG/500 ML BAG 120 MG IVPB (14:29)
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
[2024-11-10] MEDS: VANCOMYCIN 1,500 MG/NS 500 ML 1,500 MG/500 ML BAG 125 MG IVPB (02:55)
[2024-11-10] MEDS: HYDROcodone/acetaminophen (*CRX) 5-325 MG TABLET 1 TAB PO ×2 (03:44→08:14)
[2024-11-10] MEDS: CYCLOBENZAPRINE HCL 5 MG TABLET PO (03:44)
[2024-11-10 06:00] VITALS: BP 106/60; PULSE 73; RESP 20; TEMP 36.8; O2SAT 100
--- NOTE | 2024-11-10 06:29 | PCRCNOTE ---
RT called to patient room for CPAP issue; he claimed there was not enough pressure and was suffocating, would not be able to wear it; claimed his settings were 7-21 cmH2O; settings are unknown with no record found and no home machine to view; settings changed to auto 7-20 cmH2O; he says much better and wore the CPAP
[2024-11-10 06:48] LABS: Hematocrit 36.2 % (42.0-52.0); Hemoglobin 11.3 g/dL (14.0-18.0); Mean Corpuscular HGB Conc 31.2 g/dl (32-36); Mean Corpuscular Hemoglobin 28.9 pg (26-34); Mean Corpuscular Volume 92.6 fl (80-100); Platelet Count Result 323 k/mm3 (150-375); Red Blood Count 3.91 M/mm3 (4.6-6.20); White Blood Count 7.9 K/mm3 (4.5-10.0)
[2024-11-10 07:04] LABS: Anion Gap 5 mmol/L (4-12); Blood Urea Nitrogen 10 mg/dL (9-20); Calcium 8.3 mg/dL (8.4-10.2); Carbon Dioxide 27 mmol/L (22-30); Chloride 105 mmol/L (98-107); Estimated CRCL calculation 119 ml/min; Estimated Glomerular Filt Rate > 60; Glucose 90 mg/dL (65-110); Magnesium 2.1 mg/dL (1.6-2.3); Potassium 4.0 mmol/L (3.4-5.0); Sodium 137 mmol/L (137-145)
[2024-11-10] MEDS: ENOXAPARIN 80 MG/0.8 ML SYRINGE SUB-Q (08:10)
[2024-11-10] MEDS: levoFLOXacin 750 MG/D5W 150 ML 750 MG/150 ML BAG 100 MG IVPB (09:51)
[2024-11-10 12:47] LABS: Syphilis IgG/IgM Antibody Non-Reactive (Nonreactive)
[2024-11-10 12:49] LABS: Hepatitis B Surface Antigen Negative (Negative)
[2024-11-10 12:54] LABS: HAV RESULT Negative (Negative); Hepatitis B Core IgM Result Negative (Negative)
[2024-11-10 13:23] LABS: HIV 1/2 Ab P24 Ag Result Negative (Negative)
[2024-11-10 14:00] VITALS: BP 126/63; PULSE 65; RESP 14; TEMP 36.3; O2SAT 100
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
[2024-11-10 15:33] LABS: Trichomonas Vag PCR NOT DETECTED (NOT DETECTE)
[2024-11-10 16:47] LABS: CRP 4.7 mg/dL (<1.0)
[2024-11-10] MEDS: VANCOMYCIN 2,000 MG/NS 500 ML 2,000 MG/500 ML BAG 120 MG IVPB (17:05)
[2024-11-10 21:04] VITALS: PULSE 72; RESP 24; O2SAT 95
[2024-11-10 21:06] VITALS: O2SAT 97
[2024-11-10 22:00] VITALS: BP 108/63; PULSE 66; RESP 16; TEMP 36.8; O2SAT 100
[2024-11-10 22:26] VITALS: PULSE 70; RESP 14
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
[2024-11-11] MEDS: VANCOMYCIN 2,000 MG/NS 500 ML 2,000 MG/500 ML BAG 250 MG IVPB (04:24)
[2024-11-11] MEDS: HYDROcodone/acetaminophen (*CRX) 5-325 MG TABLET 1 TAB PO (04:24)
[2024-11-11 06:00] VITALS: BP 115/62; PULSE 63; RESP 20; TEMP 35.9; O2SAT 100
[2024-11-11 06:16] LABS: Hematocrit 39.8 % (42.0-52.0); Hemoglobin 12.4 g/dL (14.0-18.0); Mean Corpuscular HGB Conc 31.2 g/dl (32-36); Mean Corpuscular Hemoglobin 28.8 pg (26-34); Mean Corpuscular Volume 92.6 fl (80-100); Platelet Count Result 388 k/mm3 (150-375); Red Blood Count 4.30 M/mm3 (4.6-6.20); White Blood Count 7.1 K/mm3 (4.5-10.0)
[2024-11-11 06:43] LABS: Anion Gap 8 mmol/L (4-12); Blood Urea Nitrogen 11 mg/dL (9-20); Calcium 9.0 mg/dL (8.4-10.2); Carbon Dioxide 26 mmol/L (22-30); Chloride 103 mmol/L (98-107); Estimated CRCL calculation 112 ml/min; Estimated Glomerular Filt Rate > 60; Glucose 88 mg/dL (65-110); Magnesium 2.1 mg/dL (1.6-2.3); Potassium 4.5 mmol/L (3.4-5.0); Sodium 137 mmol/L (137-145)
--- NOTE | 2024-11-11 07:01 | PC.NURSE ---
Pt expressed he wanted to leave the hospital at approx 0400. The production control expediter provider was notified and came to speak with the pt. After talking with the doctor the patient decided to stay at the hospital.
[2024-11-11] MEDS: levoFLOXacin 750 MG/D5W 150 ML 750 MG/150 ML BAG 100 MG IVPB (09:33)
[2024-11-11] MEDS: ENOXAPARIN 40 MG/0.4 ML SYRINGE SUB-Q (09:34)
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
--- NOTE | 2024-11-11 11:29 | P.PNOP_ITS ---
Progress Note: A&P Assessment and Plan (1) Left leg cellulitis: Code(s): L03.116 - Cellulitis of left lower limb Status: Acute Plan [id number]-old male with Right, Left cellulitis was associated with prepatellar bursitis that has since been decompressed, clinically doing well. CRP has decreased from 11 to 4. Continue to follow his CRP and his physical exam. Continue IV antibiotics. Subjective Subjective Date/Time Seen: 11/11/24 11:29 Principal diagnosis: Right Leg pain Exam Narrative: Examination of the Patient's Right Lower Extremity shows that he has decreased swelling in the area of bullous formation over the Tibial Tubercle has since been ruptured apparently when he was in the shower. It appears that he does have an area of infection immediately over the Tibial Tubercle which appears to be an infected wound. However, this is only one centimeter in mediolateral and cephalocaudal dimension with no active drainage at this point. He is significantly improved on IV antibiotics. There's still no Joint involvement noted on my physical exam today as well as significant decrease in his CRP from 11 down to 4. He has been afebrile and his pain is improving. I would recommend continuing the IV antibiotics and just a simple dry dressing of the anterior aspect of his Right Knee. He appears to have a prepatellar bursitis that has been decompressed at this point. Objective Data Vital Signs Vital Signs: Vital Signs - 24 hr 11/10/24 14:00 11/10/24 21:04 11/10/24 21:06 Temperature 36.3 C L Pulse Rate 65 72 Respiratory Rate 14 24 H Blood Pressure 126/63 Pulse Oximetry 100 95 97 Oxygen Delivery Autopap Autopap Fraction of Inspired Oxygen 21 11/10/24 22:00 11/10/24 22:26 11/11/24 06:00 Temperature 36.8 C 35.9 C L Pulse Rate 66 70 63 Respiratory Rate 16 14 20 Blood Pressure 108/63 115/62 Pulse Oximetry 100 100 Oxygen Delivery Autopap Fraction of Inspired Oxygen Intake/Output Intake/Output: Intake & Output 11/08/24 11/09/24 11/10/24 11/11/24 23:59 23:59 23:59 23:59 Intake Total 3280 1484 830 Output Total 2300 300 Balance 980 1184 830 Meds/Results Medications: Active Medications Generic Name Dose Route Start Last Admin Trade Name Freq PRN Reason Stop Dose Admin Acetaminophen 650 mg 11/10/24 03:26 Acetaminophen 325 Mg Tablet PO Q4H PRN Mild Pain (1-3) or Fever Hydrocodone Bitart/Acetaminophen 1 tab 11/10/24 03:26 11/11/24 04:24 Hydrocodone/Acetaminophen (*Crx) 5-325 Mg Tablet PO 1 tab Q4H PRN Administration Pain Rated 4-6 Cyclobenzaprine HCl 5 mg 11/09/24 17:01 11/10/24 03:44 Cyclobenzaprine Hcl 5 Mg Tablet PO 5 mg Q8H PRN Administration Muscle Spasm Enoxaparin Sodium 40 mg 11/10/24 09:00 11/11/24 09:34 Enoxaparin 40 Mg/0.4 Ml Syringe SUB-Q 40 mg DAILY JADE Administration Levofloxacin/Dextrose 750 mg in 150 mls @ 100 mls/hr 11/10/24 09:00 11/11/24 09:33 Levaquin 750 Mg/D5w 150 Ml IVPB 100 mls/hr Q24H JADE Administration Vancomycin HCl 2,000 mg in 500 mls @ 250 mls/hr 11/10/24 17:00 11/11/24 04:24 Vancomycin 2,000 Mg/Ns 500 Ml IVPB 250 mls/hr Q12H JADE Administration Radiology Results: ITS Impressions Head CT 11/09/24 07:29 IMPRESSION: 1. No acute intracranial abnormality. Lower Extremity CT 11/09/24 08:04 IMPRESSION: 1. Extensive subcutaneous edema throughout the right mid to lower leg with multifocal cellulitis anterior to the proximal lower leg surrounding a 6.0 x 3.0 x 0.9 cm pretibial subcutaneous hematoma/seroma versus abscess which overlies anterior tibial tubercle. Venous Doppler Study 11/09/24 11:08 IMPRESSION: 1: No lower extremity deep venous thrombosis. Chest CTA 11/09/24 19:04 IMPRESSION: No CT evidence of acute central or segmental pulmonary embolus. Limited evaluation of the subsegmental pulmonary arteries No acute process detected in the chest. Cardiomegaly, with left ventricular chamber enlargement. Multiple pulmonary nodules measuring up to 6 mm in the left lower lobe. Recommend follow-up low-dose noncontrast CT of the chest in 3-6 months. Clavicle X-Ray 11/10/24 12:26 IMPRESSION: 1. Old healed internally fixed fracture of the left clavicle. No acute osseous a bnormality. Ankle X-Ray 11/10/24 17:39 IMPRESSION: No acute osseous finding in the right knee, right tibia/fibula, or right ankle. Possible soft tissue defect at the level of the tibial tuberosity. Diffuse leg soft tissue swelling/edema. Knee X-Ray 11/10/24 17:39 IMPRESSION: No acute osseous finding in the right knee, right tibia/fibula, or right ankle. Possible soft tissue defect at the level of the tibial tuberosity. Diffuse leg soft tissue swelling/edema. Tibia/Fibula X-Ray 11/10/24 17:39 IMPRESSION: No acute osseous finding in the right knee, right tibia/fibula, or right ankle. Possible soft tissue defect at the level of the tibial tuberosity. Diffuse leg soft tissue swelling/edema. Labs Labs: Laboratory Results - last 24 hr 11/10/24 11/10/24 11/10/24 11:46 14:19 14:21 WBC RBC Hgb Hct MCV MCH MCHC RDW Plt Count MPV Sodium Potassium Chloride Carbon Dioxide Anion Gap BUN Creatinine Estim Creat Clear Calc Estimated GFR Glucose Calcium Magnesium C-Reactive Protein 4.7 H Vancomycin Trough Syphilis IgG/IgM Ab Non-reactive C. trachomatis (PCR) Not detected Hepatitis A IgM Ab Negative Hep Bs Antigen Negative Hep B Core IgM Ab Negative Hepatitis C Ab Screen Negative HIV-1 Antibody Cancelled HIV-1 RNA, Qual (TMA) Cancelled HIV-2 Antibody Cancelled HIV 1&2 Ag/Ab, 4th Gen Cancelled HIV 1&2 Ab/P24 Ag 4thGn Negative N. gonorrhoeae (PCR) Not detected T. vaginalis (PCR) Not detected 11/10/24 11/11/24 14:28 05:23 WBC 7.1 RBC 4.30 L Hgb 12.4 L Hct 39.8 L MCV 92.6 MCH 28.8 MCHC 31.2 L RDW 13.3 Plt Count 388 H MPV 10.0 Sodium 137 Potassium 4.5 Chloride 103 Carbon Dioxide 26 Anion Gap 8 BUN 11 Creatinine 0.82 Estim Creat Clear Calc 112 Estimated GFR > 60 Glucose 88 Calcium 9.0 Magnesium 2.1 C-Reactive Protein Vancomycin Trough 8.3 L Syphilis IgG/IgM Ab C. trachomatis (PCR) Hepatitis A IgM Ab Hep Bs Antigen Hep B Core IgM Ab Hepatitis C Ab Screen HIV-1 Antibody HIV-1 RNA, Qual (TMA) HIV-2 Antibody HIV 1&2 Ag/Ab, 4th Gen HIV 1&2 Ab/P24 Ag 4thGn N. gonorrhoeae (PCR) T. vaginalis (PCR)
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
[2024-11-11 13:43] LABS: CRP 2.4 mg/dL (<1.0)
--- NOTE | 2024-11-11 13:47 | PC.NURSE ---
This pt was originally going to be discharged home with PO antibiotics. Provider reached out to ID pharmacist who noted that PO abx need to be started and CRP monitored for two days to ensure coverage. Provider to bedside to communicate this. This RN to bedside when provider left. Provider informed this RN that pt would want to leave AMA. This RN to bedside to talk with pt. Pt upset that provider would mention going home and according to pt push me out of here. Pt wants his antibiotics and pain meds. I explained that leaving AMA means that he does not get pain medications or antibiotics. Pt referenced being pissed, that he's probably going to from this, the provider basically told me I had to leave and get out of here and that I should call my ride. I let pt know the same explanation of ID pharm wanting to verify proper abx. Pt stated he had to have his kid time tomorrow. Pt stated he would just put a bandaid on it. I asked him to let me dress the wound. He allowed me to place ABD & medipore tape. Pt IV removed. This RN requested pt signature on AMA form; pt refused. Pt walked into bathroom continuing to vent frustrations about being kicked out. This RN left the room. Pt heard screaming and cursing. [place] to hallway near room. Pt heard screaming and cussing. Pt ignored typing secretary question about if he was leaving. Pt attempted to go down back elevator. This RN encouraged pt to use the main elevator. Pt walked down the hallway, loudly I am leaving because the doctor told me I had to. this is ridiculous. Lots of profanity included in the previous comments. Pt seen walking onto elevator.
--- NOTE | 2024-11-11 15:49 | PC.NURSE ---
This RN received a phone call from pt's emergency contact Liliana Boyd. She was inquiring whether patient left on his own or was discharged. loader magazine grinder Luly present with call on speaker. I verified that pt did leave against medical advice. Liliana inquired if it was cellulitis. I said that he had been admitted with cellulitis. Liliana then said that can cause sepsis and kill you right? I responded that lots of things can cause sepsis, and that his cellulitis might or might not lead to sepsis. We then heard Liliana state [place], I'm gonna kill you and then she told us thank you.
== END 2024-11-11 13:50 | disposition left against medical advice (07) | DRG 383 ==
LOC: ANHED 03:47 → ANH3MEDSUR 04:02
PROVIDERS: Family Medicine; Orthopaedic Surgery; Physician Assistant; Admitting Provider General Practice; Emergency Provider Emergency Medicine; PCP Nurse Practitioner Family; Visit Provider General Practice
DX: L03.115 Cellulitis of right lower limb (principal); K40.90 Unilateral inguinal hernia, without obstruction or gangrene, not specified as recurrent; R79.89 Other specified abnormal findings of blood chemistry; M54.50 Low back pain, unspecified; F12.90 Cannabis use, unspecified, uncomplicated; Z72.0 Tobacco use; V43.92XD Unspecified car occupant injured in collision with other type car in traffic accident, subsequent encounter
CPT/HCPCS: 36415; 70450; 71275; 73000; 73562; 73564; 73590; 73610; 73701; 80048; 80053; 80074; 80202; 80307; 82077; 83605; 83735; 85025; 85027; 85380; 85610; 85652; 85730; 86140; 86593; 86703; 87040; 87070; 87075; 87389; 87491; 87591; 87661; 93971; 94002; 96365; 96372; 99285; A9270; G0432; J1650; J1956; J3373; J7030; Q9967